=== PATIENT | male | born 1940 | race Caucasian/White ===

== ENCOUNTER 2016-12-15 11:38 | Inpatient (IN) | payer MEDICARE, OTHER ==
[~2016-12-15] VITALS: Ht 177.8 cm; Wt 69.5 kg
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
[2016-12-15 13:00] LABS: AUTOMATED NEUTROPHIL # 4.5 TH/MM3 (1.8-7.7); BASOPHIL # 0.1 TH/MM3 (0-0.2); BASOPHIL % 1.2 % (0.0-2.0); EOSINOPHIL # 0.3 TH/MM3 (0-0.4); EOSINOPHIL % 4.7 % (0.0-4.0); HEMO FLAGS DIFF FINAL; LYMPHOCYTE # 1.2 TH/MM3 (1.0-4.8); MEAN CELL VOLUME 93.2 FL (80.0-100.0); MEAN CORPUSCULAR HEMOGLOBIN 32.5 PG (27.0-34.0); MEAN CORPUSCULAR HGB CONC 34.8 % (32.0-36.0); MONO % 9.1 % (0.0-8.0); PLATELET COUNT 257 TH/MM3 (150-450); RED BLOOD COUNT 4.29 MIL/MM3 (4.50-5.90); RED CELL DISTRIBUTION WIDTH 13.7 % (11.6-17.2); WHITE BLOOD COUNT 6.7 TH/MM3 (4.0-11.0)
[2016-12-15 13:08] LABS: AMPHETAMINE, URINE NEG (NEG); BARBITURATES, URINE NEG (NEG); COCAINE, URINE NEG (NEG)
[2016-12-15 13:21] LABS: ALT (GPT) 20 U/L (12-78); ANION GAP 7 MEQ/L (5-15); AST (GOT) 14 U/L (15-37); BLOOD UREA NITROGEN 16 MG/DL (7-18); CHLORIDE 105 MEQ/L (98-107); GLOMERULAR FILTRATION RATE 78 ML/MIN (>89); POTASSIUM 4.2 MEQ/L (3.5-5.1); SODIUM (NA) 139 MEQ/L (136-145)
[2016-12-15 13:23] LABS: ALKALINE PHOSPHATASE 68 U/L (45-117); TOTAL BILIRUBIN ADULT 0.3 MG/DL (0.2-1.0)
[2016-12-15 16:35] VITALS: BP 105/73; PULSE 59; RESP 20; TEMP 97; O2SAT 94
[2016-12-15 18:52] VITALS: BP 132/68; PULSE 76; RESP 20; TEMP 97.2; O2SAT 100
[2016-12-15] MEDS ORDERED: CALC1TAB87 PO (20:19)
[2016-12-15] MEDS ORDERED: NAME5TAB2 PO (20:19)
[2016-12-15] MEDS ORDERED: BENZTROPINE MESYLATE 1 MG TAB PO PRN (20:45)
[2016-12-15] MEDS ORDERED: MAGNESIUM HYDROXIDE SUSP 30 ML CUP PO PRN (20:45)
[2016-12-15] MEDS ORDERED: BENZTROPINE MESYLATE 2 MG/2 ML VIAL IM PRN (20:45)
[2016-12-15] MEDS ORDERED: ACETAMINOPHEN 325 MG TAB PO PRN (20:45)
[2016-12-15] MEDS ORDERED: ALUMINUM/MAGNESIUM/SIMETH 30 ML CUP PO PRN (20:45)
[2016-12-15] MEDS ORDERED: diphenhydrAMINE HCL 50 MG CAP PO PRN (20:45)
[2016-12-15] MEDS ORDERED: LORazepam 2 MG/ML VIAL IM PRN (20:45)
[2016-12-15 22:21] VITALS: BP 100/54; PULSE 65; RESP 18; O2SAT 94
[2016-12-15 22:45] VITALS: BP 90/58; PULSE 71; RESP 16; TEMP 98.5; O2SAT 94
[2016-12-16 06:39] VITALS: BP 74/48; PULSE 61; RESP 16; TEMP 98.7; O2SAT 98
[2016-12-16 08:53] LABS: ANION GAP 6 MEQ/L (5-15); BLOOD UREA NITROGEN 14 MG/DL (7-18); CHLORIDE 105 MEQ/L (98-107); GLOMERULAR FILTRATION RATE 89 ML/MIN (>89); HDL CHOLESTEROL 47.2 MG/DL (40.0-60.0); LDL CHOLESTEROL 189 MG/DL (0-99); SODIUM (NA) 138 MEQ/L (136-145)
[2016-12-16] MEDS ORDERED: NICOTINE 21 MG/24 HR PATCH T-DERMAL SCH (09:00)
[2016-12-16] MEDS ORDERED: REMOVE OLD PATCH T-DERMAL SCH (09:00)
[2016-12-16 12:42] LABS: HEMOGLOBIN A1a 1.1 %; HEMOGLOBIN A1b 0.9 %; HEMOGLOBIN Ao 85.2 %; HEMOGLOBIN LA1C 1.9 %; HEMOGLOBIN P3 3.7 %
[2016-12-16] MEDS ORDERED: hydrOXYzine HCL 50 MG TAB PO PRN (12:45)
[2016-12-16] MEDS ORDERED: ALUMINUM/MAGNESIUM/SIMETH 30 ML CUP PO PRN (12:45)
[2016-12-16] MEDS ORDERED: ACETAMINOPHEN 325 MG TAB PO PRN (12:45)
[2016-12-16] MEDS ORDERED: MAGNESIUM HYDROXIDE SUSP 30 ML CUP PO PRN (12:45)
[2016-12-16] MEDS ORDERED: diphenhydrAMINE HCL 50 MG CAP PO PRN (12:45)
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
[2016-12-16 15:20] VITALS: BP 70/46
[2016-12-16 15:32] VITALS: BP 102/62; PULSE 62
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
[2016-12-16] MEDS ORDERED: MEMANTINE HCL 7 MG PO SCH (21:00)
[2016-12-17 06:01] VITALS: BP 121/73; PULSE 70; RESP 18; TEMP 98.6; O2SAT 97
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
[2016-12-17 08:51] LABS: AUTOMATED NEUTROPHIL # 4.5 TH/MM3 (1.8-7.7); BASOPHIL # 0.1 TH/MM3 (0-0.2); BASOPHIL % 0.8 % (0.0-2.0); EOSINOPHIL # 0.3 TH/MM3 (0-0.4); HEMATOCRIT 36.9 % (39.0-51.0); HEMO FLAGS DIFF FINAL; LYMPH % 19.4 % (9.0-44.0); LYMPHOCYTE # 1.3 TH/MM3 (1.0-4.8); MEAN CELL VOLUME 93.4 FL (80.0-100.0); MEAN CORPUSCULAR HEMOGLOBIN 31.4 PG (27.0-34.0); MEAN CORPUSCULAR HGB CONC 33.6 % (32.0-36.0); MONO % 9.1 % (0.0-8.0); NEUT % 66.7 % (16.0-70.0); PLATELET COUNT 216 TH/MM3 (150-450); RED BLOOD COUNT 3.95 MIL/MM3 (4.50-5.90); RED CELL DISTRIBUTION WIDTH 13.2 % (11.6-17.2); WHITE BLOOD COUNT 6.7 TH/MM3 (4.0-11.0)
[2016-12-17 09:17] LABS: ALKALINE PHOSPHATASE 59 U/L (45-117); ALT (GPT) 16 U/L (12-78); ANION GAP 10 MEQ/L (5-15); AST (GOT) 12 U/L (15-37); BICARBONATE 24.2 MEQ/L (21.0-32.0); BLOOD UREA NITROGEN 14 MG/DL (7-18); CHLORIDE 105 MEQ/L (98-107); FREE T4 1.06 NG/DL (0.76-1.46); GLOMERULAR FILTRATION RATE 88 ML/MIN (>89); SODIUM (NA) 139 MEQ/L (136-145); TOTAL BILIRUBIN ADULT 0.4 MG/DL (0.2-1.0)
[2016-12-17] MEDS: CALCIUM/VITAMIN D 250 MG/125 U TAB PO SCH (10:30)
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
--- NOTE | 2016-12-17 15:43 | HHI.PR ---
Addendum to Inpatient Note Additional Information He is medically stable. We'll sign off. Call if needed follow-up pending urinalysis Aaron Navarro MD Dec 17, 2016 15:42
[2016-12-17] MEDS: QUEtiapine FUMARATE 25 MG TAB PO SCH (17:52)
[2016-12-17 18:09] VITALS: BP 83/53; PULSE 68; RESP 18; TEMP 98.2; O2SAT 97
[2016-12-18 06:18] VITALS: BP 115/55; PULSE 69; RESP 16; TEMP 97.9; O2SAT 93
[2016-12-18] MEDS: CALCIUM/VITAMIN D 250 MG/125 U TAB PO SCH (08:59)
[2016-12-18] MEDS: QUEtiapine FUMARATE 25 MG TAB PO SCH ×3 (09:00→17:09)
[2016-12-18 18:00] VITALS: BP 88/50; PULSE 65; RESP 16; TEMP 97.5; O2SAT 94
--- NOTE | 2016-12-18 19:43 | HHI.PYPN ---
Subjective Remarks Pt seen and discussed with staff. Pt refused medications today. He believes he is 55 years old and reports the year as 2014. No agitation or aggression. Objective Alert: Yes [place]: Person Mood: Calm, Other (vigilant) Affect: Restricted Memory Intact: Comment (poor) Hallucinations: Other (denies) Delusions: Yes Delusion Type: Paranoid (vigilant) Suicidal: Ideation (denies) Homicidal: Ideation (denies) Insight/Judgement poor Vitals/IOs Vital Signs Date Time Temp Pulse Resp B/P Pulse Ox O2 Delivery O2 Flow Rate FiO2 12/18/16 18:00 97.5 65 16 88/50 94 12/15/16 22:21 Room Air Intake and Output 12/17/16 12/17/16 12/18/16 08:00 16:00 00:00 Intake Total 0 ml 1200 ml 720 ml Balance 0 ml 1200 ml 720 ml Assessment & Plan Problem List: (1) Dementia with aggressive behavior ICD Code: F03.91 Assessment & Plan continue current tx plan. Estimated LOS: days Justification for Cont. Inpt. impairments in self care Harleen Singh MD Dec 18, 2016 19:43
[2016-12-19 05:14] VITALS: BP 129/58; PULSE 63; RESP 18; TEMP 98.1; O2SAT 95
[2016-12-19] MEDS: QUEtiapine FUMARATE 25 MG TAB PO SCH ×3 (09:00→18:00)
[2016-12-19] MEDS: CALCIUM/VITAMIN D 250 MG/125 U TAB PO SCH (09:23)
--- NOTE | 2016-12-19 19:43 | HHI.PYPN ---
Subjective Remarks Pt seen and discussed with staff. He continues to be paranoid. He has refused medications again today. No SI/HI. Objective Alert: Yes [place]: Person Mood: Calm, Other (vigilant) Affect: Restricted Memory Intact: Comment (poor) Hallucinations: Other (denies) Delusions: Yes Delusion Type: Paranoid (vigilant) Suicidal: Ideation (denies) Homicidal: Ideation (denies) Insight/Judgement poor Vitals/IOs Vital Signs Date Time Temp Pulse Resp B/P Pulse Ox O2 Delivery O2 Flow Rate FiO2 12/19/16 05:14 98.1 63 18 129/58 95 12/15/16 22:21 Room Air Intake and Output 12/18/16 12/18/16 12/19/16 08:00 16:00 00:00 Intake Total 240 ml 1200 ml 1200 ml Balance 240 ml 1200 ml 1200 ml Assessment & Plan Problem List: (1) Dementia with aggressive behavior ICD Code: F03.91 Assessment & Plan Continue current tx plan. Estimated LOS: days Justification for Cont. Inpt. impairments in reality construction and self care Harleen Singh MD Dec 19, 2016 19:43
[2016-12-20 05:45] VITALS: BP 96/55; PULSE 59; RESP 16; TEMP 98.1; O2SAT 94
[2016-12-20] MEDS: QUEtiapine FUMARATE 25 MG TAB PO SCH ×3 (08:13→16:45)
[2016-12-20] MEDS: CALCIUM/VITAMIN D 250 MG/125 U TAB PO SCH (10:46)
--- NOTE | 2016-12-20 14:57 | HHI.PYPN ---
Subjective Remarks Patient discussed with treatment team and medical student Samantha, chart reviewed, patient seen on unit after session. Patient remains irritable paranoid psychotic and isolating continue to focus on wanting to go live with his girlfriend though we have no information of verification that she even exists. Patient also showing resistance to taking medication. We'll consider reassessing his competency to agreed to medication if he does not improve overnight tonight Review of Systems Except as stated in HPI: all other systems reviewed are Neg Objective Alert: Yes [place]: Person Mood: Calm, Other (vigilant) Affect: Restricted Memory Intact: Comment (poor) Hallucinations: Other (denies) Delusions: Yes Delusion Type: Paranoid (vigilant) Suicidal: Ideation (denies) Homicidal: Ideation (denies) Insight/Judgement Poor Vitals/IOs Vital Signs Date Time Temp Pulse Resp B/P Pulse Ox O2 Delivery O2 Flow Rate FiO2 12/20/16 05:45 98.1 59 16 96/55 94 Intake and Output 12/19/16 12/19/16 12/20/16 08:00 16:00 00:00 Intake Total 0 ml 960 ml Balance 0 ml 960 ml Assessment & Plan Problem List: (1) Dementia with aggressive behavior ICD Code: F03.91 Assessment & Plan Estimated LOS: days patient continues confused irritable angry with poor compliance medication for now continue treatment reassess for competency tomorrow Justification for Cont. Inpt. At this time patient will decompensate of placed in the lower level of care Discharge Planning To be determined Akshat Diaz MD Dec 20, 2016 14:57
[2016-12-20 18:00] VITALS: BP 81/51; PULSE 68; RESP 17; TEMP 98; O2SAT 96
[2016-12-21 06:17] VITALS: BP 118/66; PULSE 62; RESP 16; TEMP 98; O2SAT 96
[2016-12-21] MEDS: CALCIUM/VITAMIN D 250 MG/125 U TAB PO SCH (09:00)
[2016-12-21] MEDS: QUEtiapine FUMARATE 25 MG TAB PO SCH ×3 (09:00→18:00)
--- NOTE | 2016-12-21 10:45 | HHI.PYPN ---
Subjective Remarks Patient seen in day room with nurse Evelin and medical student Samantha, patient calm cooperative me though somewhat diffusely confused, vigilant, and guarded, still voices desire to move in with his girlfriend. Though no girlfriend has yet been located.. At this point I feel patient does not have capacity to make to see is concerning his care I will ask for healthcare surrogate and guardian advocate Review of Systems Except as stated in HPI: all other systems reviewed are Neg Objective Alert: Yes [place]: Person Mood: Calm, Other (vigilant) Affect: Restricted Memory Intact: Comment (poor) Hallucinations: Other (denies) Delusions: Yes Delusion Type: Paranoid (vigilant) Suicidal: Ideation (denies) Homicidal: Ideation (denies) Insight/Judgement Poor Vitals/IOs Vital Signs Date Time Temp Pulse Resp B/P Pulse Ox O2 Delivery O2 Flow Rate FiO2 12/21/16 06:17 98.0 62 16 118/66 96 Intake and Output 12/20/16 12/20/16 12/20/16 07:59 15:59 23:59 Intake Total 0 ml 1080 ml 1080 ml Balance 0 ml 1080 ml 1080 ml Assessment & Plan Problem List: (1) Dementia with aggressive behavior ICD Code: F03.91 Assessment & Plan Estimated LOS: days patient remains somewhat confused with underlying vigilance , quite guarded. At this point I feel patient does not have capacity to make decisions concerning his care thus I'll ask for healthcare surrogate and guardian advocate Justification for Cont. Inpt. At this point patient would decompensate placed in a lower level of care Discharge Planning To be determined Request HC Surrog/Guard Advoc?: Yes Akshat Diaz MD Dec 21, 2016 10:45
[2016-12-21 18:21] VITALS: BP 120/70; PULSE 58; RESP 16; TEMP 98.2; O2SAT 98
[2016-12-22 06:34] VITALS: BP 85/56; PULSE 55; RESP 16; TEMP 97.9; O2SAT 98
[2016-12-22] MEDS: QUEtiapine FUMARATE 25 MG TAB PO SCH ×2 (09:21→20:31)
[2016-12-22] MEDS: CALCIUM/VITAMIN D 250 MG/125 U TAB PO SCH (09:21)
--- NOTE | 2016-12-22 11:35 | HHI.PYPN ---
Subjective Remarks Patient seen in his room with nurse Monalisa, he should compliant medications he is calm with me though continues to state that he wishes to go to live in the now with his girlfriend, however we have never been able to identify or verify the girlfriend. Patient showing no insight into his behaviors. At this time we will increase Seroquel to 50 mg twice a day Review of Systems Except as stated in HPI: all other systems reviewed are Neg Objective Alert: Yes [place]: Person Mood: Calm, Other (vigilant) Affect: Restricted Memory Intact: Comment (poor) Hallucinations: Other (denies) Delusions: Yes Delusion Type: Paranoid (vigilant) Suicidal: Ideation (denies) Homicidal: Ideation (denies) Insight/Judgement Very poor Vitals/IOs Vital Signs Date Time Temp Pulse Resp B/P Pulse Ox O2 Delivery O2 Flow Rate FiO2 12/22/16 06:34 97.9 55 16 85/56 98 Intake and Output 12/21/16 12/21/16 12/22/16 08:00 16:00 00:00 Intake Total 120 ml 360 ml 480 ml Balance 120 ml 360 ml 480 ml Assessment & Plan Problem List: (1) Dementia with aggressive behavior ICD Code: F03.91 Assessment & Plan Estimated LOS: days patient continues confused demented, though no significant help problems at this time. Patient continues to state he wishes to move to been well with his girlfriend See medication changes above Justification for Cont. Inpt. At this time patient will decompensate if placed in a lower level of care Discharge Planning To be determined Request HC Surrog/Guard Advoc?: Yes Akshat Diaz MD Dec 22, 2016 11:35
[2016-12-22 18:00] VITALS: BP 83/56; PULSE 58; RESP 16; TEMP 98.2; O2SAT 96
[2016-12-23 05:52] VITALS: BP 79/52; PULSE 69; RESP 16; TEMP 97.9; O2SAT 99
[2016-12-23] MEDS: CALCIUM/VITAMIN D 250 MG/125 U TAB PO SCH (09:12)
[2016-12-23] MEDS: QUEtiapine FUMARATE 25 MG TAB PO SCH ×2 (09:13→21:00)
--- NOTE | 2016-12-23 14:51 | HHI.PYPN ---
Subjective Remarks Patient seen in [address] patient retained by Community Service Aide Tristin with guarded advocate appointed. Patient remains confused somewhat disoriented. Compliant medication. Though still no insight at all into behaviors that led to this hospitalization Review of Systems Except as stated in HPI: all other systems reviewed are Neg Objective Alert: Yes [place]: Person Mood: Calm, Other (vigilant) Affect: Restricted Memory Intact: Comment (poor) Hallucinations: Other (denies) Delusions: Yes Delusion Type: Paranoid (vigilant) Suicidal: Ideation (denies) Homicidal: Ideation (denies) Insight/Judgement Very poor Vitals/IOs Vital Signs Date Time Temp Pulse Resp B/P Pulse Ox O2 Delivery O2 Flow Rate FiO2 12/23/16 05:52 97.9 69 16 79/52 99 Intake and Output 12/22/16 12/22/16 12/23/16 08:00 16:00 00:00 Intake Total 120 ml 1200 ml 840 ml Balance 120 ml 1200 ml 840 ml Assessment & Plan Problem List: (1) OTHER ALZHEIMER'S DISEASE ICD Code: G30.8 Assessment & Plan Estimated LOS: days patient retained by Community Service Aide Tristin continues confused and disoriented. For now continue treatment. Placement may be problematic Justification for Cont. Inpt. At this time patient decompensated placed in a lower level of care Discharge Planning To be determined Request HC Surrog/Guard Advoc?: Yes Akshat Diaz MD Dec 23, 2016 14:51
[2016-12-23 18:45] VITALS: BP 132/61; PULSE 59; RESP 17; TEMP 97.7; O2SAT 97
[2016-12-24 06:03] VITALS: BP 85/46; PULSE 67; RESP 16; TEMP 97.8; O2SAT 94
[2016-12-24 09:00] VITALS: BP 99/60; PULSE 62
[2016-12-24] MEDS: CALCIUM/VITAMIN D 250 MG/125 U TAB PO SCH (09:00)
[2016-12-24] MEDS: QUEtiapine FUMARATE 25 MG TAB PO SCH ×2 (09:00→20:15)
[2016-12-24 17:51] VITALS: BP 141/65; PULSE 61
[2016-12-24 18:04] VITALS: BP 141/65; PULSE 61; RESP 16; TEMP 97.9; O2SAT 97
[2016-12-25 06:42] VITALS: BP 117/57; PULSE 63; RESP 17; TEMP 98; O2SAT 97
[2016-12-25] MEDS: QUEtiapine FUMARATE 25 MG TAB PO SCH ×2 (09:00→21:33)
[2016-12-25] MEDS: CALCIUM/VITAMIN D 250 MG/125 U TAB PO SCH (09:00)
--- NOTE | 2016-12-25 11:52 | HHI.PYPN ---
Subjective Remarks Patient was seen and case discussed with nursing. Patient was irritable with nursing this morning and refuse to take his calcium pill. He has been noncompliant with Seroquel since admission. With me he remains oppositional not rude. Continues to have fixed delusion that is 55 years old. Largely keeps to himself. no aggressive behavior Objective Alert: Yes [place]: Person Mood: Calm, Other (vigilant) Affect: Restricted Memory Intact: Comment (poor) Hallucinations: Other (denies) Delusions: Yes Delusion Type: Paranoid (vigilant) Suicidal: Ideation (denies) Homicidal: Ideation (denies) Insight/Judgement Poor Vitals/IOs Vital Signs Date Time Temp Pulse Resp B/P Pulse Ox O2 Delivery O2 Flow Rate FiO2 12/25/16 06:42 98.0 63 17 117/57 97 Intake and Output 12/24/16 12/24/16 12/25/16 08:00 16:00 00:00 Intake Total 360 ml 1200 ml 720 ml Balance 360 ml 1200 ml 720 ml Assessment & Plan Problem List: (1) OTHER ALZHEIMER'S DISEASE ICD Code: G30.8 Assessment & Plan Continue current treatment plan Justification for Cont. Inpt. Patient will decompensate in a less restrictive setting Request HC Surrog/Guard Advoc?: Yes Pablo Ferreira DO Dec 25, 2016 11:51
[2016-12-26 06:43] VITALS: BP 74/52; PULSE 77; RESP 18; TEMP 97.7; O2SAT 95
[2016-12-26] MEDS: QUEtiapine FUMARATE 25 MG TAB PO SCH ×2 (09:00→20:46)
[2016-12-26] MEDS: CALCIUM/VITAMIN D 250 MG/125 U TAB PO SCH (09:00)
--- NOTE | 2016-12-26 13:19 | HHI.PYPN ---
Subjective Remarks Patient was seen and case discussed with nursing. Patient continues to refuse all medications. She needs to have fixed delusion that he 75. He is seclusive to self. Continues to have poor insight into his admission. Per nursing he has an irritable edge. Vitals were checked this morning and were 74/52 which is low what he appears to have had low pressure since his admission. Denies any dizziness, pain. Objective Alert: Yes [place]: Person Mood: Calm, Other (vigilant) Affect: Restricted Memory Intact: Comment (poor) Hallucinations: Other (denies) Delusions: Yes Delusion Type: Paranoid (vigilant) Suicidal: Ideation (denies) Homicidal: Ideation (denies) Insight/Judgement Poor Vitals/IOs Vital Signs Date Time Temp Pulse Resp B/P Pulse Ox O2 Delivery O2 Flow Rate FiO2 12/26/16 06:43 97.7 77 18 74/52 95 Intake and Output 12/25/16 12/25/16 12/26/16 08:00 16:00 00:00 Intake Total 240 ml 480 ml 360 ml Balance 240 ml 480 ml 360 ml Assessment & Plan Problem List: (1) OTHER ALZHEIMER'S DISEASE ICD Code: G30.8 Assessment & Plan Encourage fluids, consult medicine Justification for Cont. Inpt. Patient will decompensate in a less restrictive setting Request HC Surrog/Guard Advoc?: Yes Pablo Ferreira DO Dec 26, 2016 13:19
[2016-12-26 14:09] VITALS: BP 98/62; PULSE 78
[2016-12-26 18:17] VITALS: BP 100/50; PULSE 78; RESP 19; TEMP 98.1; O2SAT 96
[2016-12-27 06:04] VITALS: BP 86/42; PULSE 80; RESP 16; TEMP 98.1; O2SAT 94
[2016-12-27 06:12] VITALS: BP 86/42; PULSE 80; RESP 16; TEMP 98.1; O2SAT 94
[2016-12-27] MEDS: CALCIUM/VITAMIN D 250 MG/125 U TAB PO SCH (09:00)
[2016-12-27] MEDS: QUEtiapine FUMARATE 25 MG TAB PO SCH ×2 (09:00→21:29)
[2016-12-27 09:54] VITALS: BP 130/59
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
--- NOTE | 2016-12-27 16:07 | HHI.PYPN ---
Subjective Remarks Patient discussed with treatment team and medical student Tiffany, chart reviewed , patient seen on unit but confused irritable with mixed compliance with medication. Placement remains problematic Review of Systems Except as stated in HPI: all other systems reviewed are Neg Objective Alert: Yes [place]: Person Mood: Calm, Other (vigilant) Affect: Restricted Memory Intact: Comment (poor) Hallucinations: Other (denies) Delusions: Yes Delusion Type: Paranoid (vigilant) Suicidal: Ideation (denies) Homicidal: Ideation (denies) Insight/Judgement Poor Vitals/IOs Vital Signs Date Time Temp Pulse Resp B/P Pulse Ox O2 Delivery O2 Flow Rate FiO2 12/27/16 09:54 130/59 12/27/16 06:12 98.1 80 16 94 Intake and Output 12/26/16 12/26/16 12/27/16 08:00 16:00 00:00 Intake Total 0 ml 2160 ml Balance 0 ml 2160 ml Assessment & Plan Problem List: (1) OTHER ALZHEIMER'S DISEASE ICD Code: G30.8 Assessment & Plan Estimated LOS: days patient remains confused demented irritable with some poor compliance medication. Placement remains problematic Justification for Cont. Inpt. At this time patient decompensate placed on the lower level of care Discharge Planning To be determined Request HC Surrog/Guard Advoc?: Yes Akshat Diaz MD Dec 27, 2016 16:07
[2016-12-28 06:39] VITALS: BP 85/50; PULSE 89; RESP 16; TEMP 99.5; O2SAT 94
[2016-12-28 07:20] VITALS: BP 134/65; PULSE 72
[2016-12-28] MEDS: CALCIUM/VITAMIN D 250 MG/125 U TAB PO SCH (09:49)
[2016-12-28] MEDS: QUEtiapine FUMARATE 25 MG TAB PO SCH ×2 (09:49→21:48)
--- NOTE | 2016-12-28 14:14 | HHI.PYPN ---
Subjective Remarks Patient seen in his room with nurse Kaley and medical student Tiffany, patient calm cooperative, compliant medications still has a little to no insight into his behaviors and lift this hospitalization relating to the problems related to placement Review of Systems Except as stated in HPI: all other systems reviewed are Neg Objective Alert: Yes [place]: Person Mood: Calm, Other (vigilant) Affect: Restricted Memory Intact: Comment (poor) Hallucinations: Other (denies) Delusions: Yes Delusion Type: Paranoid (vigilant) Suicidal: Ideation (denies) Homicidal: Ideation (denies) Insight/Judgement Poor Vitals/IOs Vital Signs Date Time Temp Pulse Resp B/P Pulse Ox O2 Delivery O2 Flow Rate FiO2 12/28/16 07:20 72 134/65 12/28/16 06:39 99.5 16 94 Intake and Output 12/27/16 12/27/16 12/28/16 08:00 16:00 00:00 Intake Total 360 ml Balance 360 ml Assessment & Plan Problem List: (1) OTHER ALZHEIMER'S DISEASE ICD Code: G30.8 Assessment & Plan Estimated LOS: days patient continues confused irritable little insight into his issues. Compliant medications. No behavior problems noted at this time Justification for Cont. Inpt. This time patient would decompensate placed a lower level of care Discharge Planning To be determined Request HC Surrog/Guard Advoc?: Yes Akshat Diaz MD Dec 28, 2016 14:14
[2016-12-29 06:34] VITALS: BP 89/56; PULSE 93; RESP 16; TEMP 100; O2SAT 94
[2016-12-29] MEDS: QUEtiapine FUMARATE 25 MG TAB PO SCH ×2 (08:42→21:59)
[2016-12-29] MEDS: CALCIUM/VITAMIN D 250 MG/125 U TAB PO SCH (08:43)
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
--- NOTE | 2016-12-29 12:54 | HHI.PYPN ---
Subjective Remarks Patient seen in day room with nurse Lora, patient continues calm and cooperative and confused stating that tomorrow is his 56th birthday, and he wants to be discharged. He should compliant medications. No significant behavioral problems Review of Systems Except as stated in HPI: all other systems reviewed are Neg Objective Alert: Yes [place]: Person Mood: Calm, Other (vigilant) Affect: Restricted Memory Intact: Comment (poor) Hallucinations: Other (denies) Delusions: Yes Delusion Type: Paranoid (vigilant) Suicidal: Ideation (denies) Homicidal: Ideation (denies) Insight/Judgement Very poor Vitals/IOs Vital Signs Date Time Temp Pulse Resp B/P Pulse Ox O2 Delivery O2 Flow Rate FiO2 12/29/16 06:34 100.0 93 16 89/56 94 Intake and Output 12/28/16 12/28/16 12/28/16 07:59 15:59 23:59 Intake Total 1440 ml Balance 1440 ml Assessment & Plan Problem List: (1) OTHER ALZHEIMER'S DISEASE ICD Code: G30.8 Assessment & Plan Estimated LOS: days patient continues confused disoriented, though no behavior problems, compliant medications. Staff was noted patient has some type of a open wound on his back with a red perimeter will get wound nurse consult Justification for Cont. Inpt. At this time patient will decompensate placed in a lower level of care Discharge Planning To be determined Request HC Surrog/Guard Advoc?: Yes Akshat Diaz MD Dec 29, 2016 12:53
[2016-12-29 12:59] VITALS: BP 80/55
[2016-12-29 14:26] LABS: HEMATOCRIT 35.5 % (39.0-51.0); MEAN CELL VOLUME 92.3 FL (80.0-100.0); MEAN CORPUSCULAR HGB CONC 34.6 % (32.0-36.0); PLATELET COUNT 213 TH/MM3 (150-450); RED BLOOD COUNT 3.84 MIL/MM3 (4.50-5.90); RED CELL DISTRIBUTION WIDTH 13.3 % (11.6-17.2); REVIEW FLAG FINAL; WHITE BLOOD COUNT 10.9 TH/MM3 (4.0-11.0)
[2016-12-29 14:48] LABS: BICARBONATE 26.7 MEQ/L (21.0-32.0); POTASSIUM 3.9 MEQ/L (3.5-5.1)
--- NOTE | 2016-12-29 16:38 | MB ---
cc: BARRIE WAGGONER M.D. DATE OF CONSULTATION 12/29/2016 REASON FOR CONSULTATION Right back abscess. HISTORY OF PRESENT ILLNESS Mr. Bazan is a pleasant 75-year-old gentleman who is admitted to psychiatric facility for some dementia and anger management issues. Apparently he was admitted on the . Today on rounds it was noted that he had what appeared to be an infected wound on his right inferior scapula region. Surgical consultation was requested. The patient reports he has no knowledge of any trauma to the area. He states the wound has been there for about a week. He reports it is painful. It apparently started draining in the last [id number] days when the nurse started putting a dressing on it. The patient denies any previous sebaceous cyst or any other problems with infected wounds. He denies any history of trauma to the area. PAST MEDICAL HISTORY Psychiatric illness. PAST SURGICAL HISTORY None. MEDICATIONS Please see EMR. ALLERGIES He has no known drug allergies. SOCIAL HISTORY Lives in an [facility]. He apparently smokes, does not drink. FAMILY HISTORY Noncontributory. PHYSICAL EXAMINATION VITAL SIGNS: Temperature is 98, is 90/50, respiratory rate 20. GENERAL: This is a pleasant elderly gentleman, examined with the nurse present. Focused physical exam, on his back he has about 3 cm in diameter infected sebaceous cyst just below the scapula on the right. There are some draining sites. There is associated erythema and ecchymosis. IMPRESSION Infected sebaceous cyst, right back. PLAN At this point the patient needs a very simple I&D. Unfortunately this cannot be performed in the psychiatric facility as there are insufficient supplies including local anesthetic, I&D tray and packing supplies. I discussed this with the nursing staff. The easiest thing would be to have the patient brought over to the emergency room where an ER physician or a tertiary provider such as a nurse practitioner or a physician's congressional assistant could do a simple I&D. He just needs a little bit of local anesthetic and to resect the necrotic skin right over the wound. It is going to be cleansed with peroxide and a Q-Tip and then packed with iodoform gauze and a dry dressing. I do not believe this warrants admission to the hospital and formal surgical drainage in the operating room. I believe this could be done in the fast track of the emergency department in several minutes and then he could return back to psychiatric facility. The nursing staff is going to try and coordinate this with the emergency department physician. If they are unable to coordinate it, then the patient will need to be transferred over the medical service at the main hospital and then formal surgical consultation can be made and the patient be taken the operating room for formal I&D which I think is a little bit overkill for this wound. Hopefully the nursing staff and the emergency department staff can coordinate the care which would be in the patient's best interest. MD ISAI Whitfield/KK /3:48 PM /4:25 PM
[2016-12-29] MEDS ORDERED: Vancomycin Consult Pharmacy 1 EA OTHER SCH (17:00)
[2016-12-29] MEDS ORDERED: VANCOMYCIN INJ 1,000 MG in SODIUM CHLOR 0.9% 250 ML INJ 250 ML IV SCH (17:00)
[2016-12-29] MEDS ORDERED: VANCOMYCIN 1,000 MG/NS 250 ML IV ONE ×2 (17:30)
[2016-12-29 19:12] LABS: AUTOMATED NEUTROPHIL # 9.2 TH/MM3 (1.8-7.7); BASOPHIL % 0.3 % (0.0-2.0); EOSINOPHIL # 0.1 TH/MM3 (0-0.4); EOSINOPHIL % 1.1 % (0.0-4.0); HEMATOCRIT 35.6 % (39.0-51.0); HEMO FLAGS DIFF FINAL; LYMPH % 6.4 % (9.0-44.0); LYMPHOCYTE # 0.7 TH/MM3 (1.0-4.8); MEAN CELL VOLUME 93.7 FL (80.0-100.0); MEAN CORPUSCULAR HEMOGLOBIN 31.5 PG (27.0-34.0); MEAN CORPUSCULAR HGB CONC 33.6 % (32.0-36.0); MONO % 11.3 % (0.0-8.0); NEUT % 80.9 % (16.0-70.0); PLATELET COUNT 216 TH/MM3 (150-450); RED CELL DISTRIBUTION WIDTH 13.3 % (11.6-17.2); WHITE BLOOD COUNT 11.4 TH/MM3 (4.0-11.0)
[2016-12-29] MEDS ORDERED: VANCOMYCIN INJ 1,750 MG in SODIUM CHLORID 0.9% 500 ML INJ 500 ML IV SCH (20:00)
[2016-12-29 20:49] VITALS: BP 135/57; PULSE 80; RESP 16; TEMP 97.4; O2SAT 98
[2016-12-29] MEDS: SODIUM CHLOR 0.9% 1000 ML INJ 1,000 ML IV SCH (23:27)
[2016-12-30] MEDS: PIPERACIL-TAZO 3.375 GM PREMIX 50 ML IV SCH ×5 (00:23→21:42)
[2016-12-30] MEDS: SODIUM CHLOR 0.9% 1000 ML INJ 1,000 ML IV SCH ×3 (03:00→21:46)
[2016-12-30] MEDS: LORazepam 0.5 MG TAB PO PRN (03:37)
[2016-12-30 05:50] VITALS: BP 110/57; PULSE 74; RESP 16; TEMP 98.1; O2SAT 94
[2016-12-30 07:18] LABS: BICARBONATE 26.9 MEQ/L (21.0-32.0); POTASSIUM 3.7 MEQ/L (3.5-5.1)
[2016-12-30 07:31] LABS: AUTOMATED NEUTROPHIL # 7.4 TH/MM3 (1.8-7.7); BASOPHIL # 0.1 TH/MM3 (0-0.2); BASOPHIL % 0.5 % (0.0-2.0); EOSINOPHIL # 0.2 TH/MM3 (0-0.4); EOSINOPHIL % 2.1 % (0.0-4.0); HEMATOCRIT 33.1 % (39.0-51.0); HEMO FLAGS DIFF FINAL; LYMPH % 10.5 % (9.0-44.0); LYMPHOCYTE # 1.1 TH/MM3 (1.0-4.8); MEAN CELL VOLUME 92.7 FL (80.0-100.0); MEAN CORPUSCULAR HEMOGLOBIN 31.2 PG (27.0-34.0); MEAN CORPUSCULAR HGB CONC 33.7 % (32.0-36.0); MONO % 13.4 % (0.0-8.0); NEUT % 73.5 % (16.0-70.0); PLATELET COUNT 209 TH/MM3 (150-450); RED BLOOD COUNT 3.57 MIL/MM3 (4.50-5.90); RED CELL DISTRIBUTION WIDTH 13.4 % (11.6-17.2); WHITE BLOOD COUNT 10.1 TH/MM3 (4.0-11.0)
[2016-12-30] MEDS: QUEtiapine FUMARATE 25 MG TAB PO SCH ×2 (08:50→21:41)
[2016-12-30] MEDS: CALCIUM/VITAMIN D 250 MG/125 U TAB PO SCH (08:50)
[2016-12-30] MEDS ORDERED: LIDOCAINE HCL 1% 30 ML VIAL OTHER SCH (10:00)
--- NOTE | 2016-12-30 12:28 | HHI.PYPN ---
Subjective Remarks On evaluation today patient is calm, cooperative, pleasantly confused, he knows that he is at [facility], he knows today is December 2016, but he doesn't know the reason he is in the hospital, doesn't recognize his medical illnesses and the know the medication that he is taking. However he reports good mood, he says that he feels good here, denies suicidal or homicidal ideation, denies visual and auditory hallucinations. Patient was transferred to the med psych unit from 2500 units due to back abscess for which IV is recommending IV antibiotics. Review of Systems Other He doesn't have any somatic complaint Objective Alert: Yes [place]: Person Mood: Calm, Other (vigilant) Affect: Restricted Memory Intact: Comment (poor) Hallucinations: Other (denies) Delusions: Yes Delusion Type: Paranoid (vigilant) Suicidal: Ideation (denies) Homicidal: Ideation (denies) Insight/Judgement fair Labs Test 12/29/16 12/30/16 12/30/16 14:03 01:09 06:20 White Blood Count 11.4 TH/MM3 10.1 TH/MM3 Red Blood Count 3.80 MIL/MM3 3.57 MIL/MM3 Hemoglobin 12.0 GM/DL 11.1 GM/DL Hematocrit 35.6 % 33.1 % Mean Corpuscular Volume 93.7 FL 92.7 FL Mean Corpuscular Hemoglobin 31.5 PG 31.2 PG Mean Corpuscular Hemoglobin 33.6 % 33.7 % Concent Red Cell Distribution Width 13.3 % 13.4 % Platelet Count 216 TH/MM3 209 TH/MM3 Mean Platelet Volume 8.9 FL 8.4 FL Neutrophils (%) (Auto) 80.9 % 73.5 % Lymphocytes (%) (Auto) 6.4 % 10.5 % Monocytes (%) (Auto) 11.3 % 13.4 % Eosinophils (%) (Auto) 1.1 % 2.1 % Basophils (%) (Auto) 0.3 % 0.5 % Neutrophils # (Auto) 9.2 TH/MM3 7.4 TH/MM3 Lymphocytes # (Auto) 0.7 TH/MM3 1.1 TH/MM3 Monocytes # (Auto) 1.3 TH/MM3 1.3 TH/MM3 Eosinophils # (Auto) 0.1 TH/MM3 0.2 TH/MM3 Basophils # (Auto) 0.0 TH/MM3 0.1 TH/MM3 CBC Comment DIFF FINAL DIFF FINAL Differential Comment Sodium Level 135 MEQ/L 136 MEQ/L Potassium Level 3.9 MEQ/L 3.7 MEQ/L Chloride Level 101 MEQ/L 103 MEQ/L Carbon Dioxide Level 26.7 MEQ/L 26.9 MEQ/L Anion Gap 7 MEQ/L 6 MEQ/L Blood Urea Nitrogen 14 MG/DL 12 MG/DL Creatinine 0.87 MG/DL 0.85 MG/DL Estimat Glomerular Filtration 85 ML/MIN 87 ML/MIN Rate Random Glucose 117 MG/DL 95 MG/DL Calcium Level 8.6 MG/DL 8.1 MG/DL Lactic Acid Level 0.6 mmol/L Date/Time Procedure Status Source Growth 12/30/16 01:09 Aerobic Blood Culture Received Blood Peripheral Pending 12/30/16 01:09 Anaerobic Blood Culture Received Blood Peripheral Pending Vitals/IOs Vital Signs Date Time Temp Pulse Resp B/P Pulse Ox O2 Delivery O2 Flow Rate FiO2 12/30/16 05:50 98.1 74 16 110/57 94 Intake and Output 12/29/16 12/29/16 12/30/16 08:00 16:00 00:00 Intake Total 600 ml Balance 600 ml Assessment & Plan Problem List: (1) OTHER ALZHEIMER'S DISEASE ICD Code: G30.8 Assessment & Plan Estimated LOS: days Justification for Cont. Inpt. Patient is to continue psychiatric hospitalization for stabilization, needs IV antibiotic therapy for back abscess Request HC Surrog/Guard Advoc?: Yes Job Bowling MD Dec 30, 2016 12:26
[2016-12-30] MEDS ORDERED: LIDOCAINE 1%/EPINEPHrine 1:100,000 SOLN 30 ML VIAL OTHER ONE (13:45)
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
[2016-12-30 19:42] VITALS: BP 136/58; PULSE 102; RESP 16; TEMP 98.7; O2SAT 95
[2016-12-30] MEDS: VANCOMYCIN 1,000 MG/NS 250 ML IV SCH ×2 (20:43)
[2016-12-31 00:49] LABS: BLOOD, URINE NEG (NEG); COMMENT (UR) CULT NOT INDICATED; CULTURE IF INDICATED CULT NOT INDICATED; GLUCOSE,URINE NEG (NEG); KETONE, URINE NEG (NEG); MUCUS URINE FEW /lpf (OCC); NITRITE,URINE NEG (NEG); PH, URINE 5.5 (5.0-8.5); URINE COLOR YELLOW (YELLW/STRAW)
[2016-12-31] MEDS: PIPERACIL-TAZO 3.375 GM PREMIX 50 ML IV SCH ×3 (03:00→14:50)
[2016-12-31 05:44] VITALS: BP 101/57; PULSE 61; RESP 16; TEMP 97.4; O2SAT 93
[2016-12-31 07:52] LABS: AUTOMATED NEUTROPHIL # 5.3 TH/MM3 (1.8-7.7); BASOPHIL # 0.1 TH/MM3 (0-0.2); BASOPHIL % 0.7 % (0.0-2.0); EOSINOPHIL # 0.2 TH/MM3 (0-0.4); EOSINOPHIL % 2.6 % (0.0-4.0); HEMATOCRIT 32.9 % (39.0-51.0); HEMO FLAGS DIFF FINAL; LYMPH % 13.4 % (9.0-44.0); MEAN CELL VOLUME 93.4 FL (80.0-100.0); MEAN CORPUSCULAR HEMOGLOBIN 31.1 PG (27.0-34.0); MEAN CORPUSCULAR HGB CONC 33.3 % (32.0-36.0); MONO % 14.2 % (0.0-8.0); NEUT % 69.1 % (16.0-70.0); PLATELET COUNT 225 TH/MM3 (150-450); RED BLOOD COUNT 3.53 MIL/MM3 (4.50-5.90); RED CELL DISTRIBUTION WIDTH 13.3 % (11.6-17.2); WHITE BLOOD COUNT 7.7 TH/MM3 (4.0-11.0)
[2016-12-31 08:16] LABS: ALKALINE PHOSPHATASE 54 U/L (45-117); ALT (GPT) 14 U/L (12-78); ANION GAP 5 MEQ/L (5-15); AST (GOT) 9 U/L (15-37); BICARBONATE 27.9 MEQ/L (21.0-32.0); BLOOD UREA NITROGEN 10 MG/DL (7-18); CHLORIDE 106 MEQ/L (98-107); GLOMERULAR FILTRATION RATE 71 ML/MIN (>89); MAGNESIUM 2.2 MG/DL (1.5-2.5); POTASSIUM 4.2 MEQ/L (3.5-5.1); SODIUM (NA) 139 MEQ/L (136-145); TOTAL BILIRUBIN ADULT 0.5 MG/DL (0.2-1.0)
[2016-12-31] MEDS: PRAVASTATIN SOD 20 MG TAB PO SCH (08:48)
--- NOTE | 2016-12-31 08:48 | HHI.PYPN ---
Subjective Remarks Patient was seen today for psychiatric reevaluation, patient was found calm and cooperative, pleasant, laying his bed, he reports good mood, denies pain, distress, reports good level of energy, good concentration, good appetite, he says that he has been watching the TV closely because he wants to follow the steps of Donaldo Cueva "who is going to be very close to [place] this weekend". He denies suicidal or homicidal ideation, he denies visual and auditory hallucinations. Patient is oriented in time, person and place. He is compliant with medications, no significant side effects, no agitation aggressive behavior, mood or behavioral dysregulation have been reported or observed. Review of Systems Other No somatic complaints Objective Alert: Yes [place]: Person, Place, Date Mood: Calm, Other (vigilant) Affect: Restricted Memory Intact: Recent, Remote, Comment (poor) Hallucinations: Other (denies) Delusions: Yes Delusion Type: Other (none elicited) Suicidal: Ideation (denies) Homicidal: Ideation (denies) Insight/Judgement fair Labs Test 12/31/16 12/31/16 00:12 07:17 Urine Color YELLOW Urine Turbidity CLEAR Urine pH 5.5 Urine Specific [place] 1.024 Urine Protein TRACE mg/dL Urine Glucose (UA) NEG mg/dL Urine Ketones NEG mg/dL Urine Occult Blood NEG Urine Nitrite NEG Urine Bilirubin NEG Urine Urobilinogen LESS THAN 2.0 MG/DL Urine Leukocyte Esterase NEG Urine RBC 1 /hpf Urine WBC 2 /hpf Urine Mucus FEW /lpf Microscopic Urinalysis Comment CULT NOT INDICATED White Blood Count 7.7 TH/MM3 Red Blood Count 3.53 MIL/MM3 Hemoglobin 11.0 GM/DL Hematocrit 32.9 % Mean Corpuscular Volume 93.4 FL Mean Corpuscular Hemoglobin 31.1 PG Mean Corpuscular Hemoglobin 33.3 % Concent Red Cell Distribution Width 13.3 % Platelet Count 225 TH/MM3 Mean Platelet Volume 8.2 FL Neutrophils (%) (Auto) 69.1 % Lymphocytes (%) (Auto) 13.4 % Monocytes (%) (Auto) 14.2 % Eosinophils (%) (Auto) 2.6 % Basophils (%) (Auto) 0.7 % Neutrophils # (Auto) 5.3 TH/MM3 Lymphocytes # (Auto) 1.0 TH/MM3 Monocytes # (Auto) 1.1 TH/MM3 Eosinophils # (Auto) 0.2 TH/MM3 Basophils # (Auto) 0.1 TH/MM3 CBC Comment DIFF FINAL Differential Comment Sodium Level 139 MEQ/L Potassium Level 4.2 MEQ/L Chloride Level 106 MEQ/L Carbon Dioxide Level 27.9 MEQ/L Anion Gap 5 MEQ/L Blood Urea Nitrogen 10 MG/DL Creatinine 1.02 MG/DL Estimat Glomerular Filtration 71 ML/MIN Rate Random Glucose 87 MG/DL Calcium Level 8.5 MG/DL Phosphorus Level 2.8 MG/DL Magnesium Level 2.2 MG/DL Total Bilirubin 0.5 MG/DL Aspartate Amino Transf 9 U/L (AST/SGOT) Alanine Aminotransferase 14 U/L (ALT/SGPT) Alkaline Phosphatase 54 U/L Total Protein 5.7 GM/DL Albumin 2.5 GM/DL Date/Time Procedure Status Source Growth 12/30/16 12:44 Gram Stain Received Wound Back Pending 12/30/16 12:44 Wound Culture Received Wound Back Pending 12/30/16 01:09 Aerobic Blood Culture Received Blood Peripheral Pending 12/30/16 01:09 Anaerobic Blood Culture Received Blood Peripheral Pending Vitals/IOs Vital Signs Date Time Temp Pulse Resp B/P Pulse Ox O2 Delivery O2 Flow Rate FiO2 12/31/16 05:44 97.4 61 16 101/57 93 Intake and Output 12/30/16 12/30/16 12/31/16 08:00 16:00 00:00 Intake Total 120 ml 240 ml 480 ml Balance 120 ml 240 ml 480 ml Assessment & Plan Problem List: (1) OTHER ALZHEIMER'S DISEASE ICD Code: G30.8 Assessment & Plan Estimated LOS: days Justification for Cont. Inpt. Patient is to continue psychiatric hospitalization for stabilization, also medical care since patient needs IV antibiotic for back abscess and potential early sepsis Request HC Surrog/Guard Advoc?: Yes Job Bowling MD Dec 31, 2016 08:48
[2016-12-31] MEDS: CALCIUM/VITAMIN D 250 MG/125 U TAB PO SCH (08:49)
[2016-12-31] MEDS: QUEtiapine FUMARATE 25 MG TAB PO SCH ×2 (08:49→20:50)
[2016-12-31] MEDS: SODIUM CHLOR 0.9% 1000 ML INJ 1,000 ML IV SCH ×2 (09:00→19:00)
--- NOTE | 2016-12-31 10:28 | HHI.PR ---
Subjective Subjective Notes Resting in bed No complaints Objective Vitals/I&O Vital Signs Date Time Temp Pulse Resp B/P Pulse Ox O2 Delivery O2 Flow Rate FiO2 12/31/16 05:44 97.4 61 16 101/57 93 Labs Laboratory Tests Test 12/31/16 12/31/16 00:12 07:17 Urine Color YELLOW Urine Turbidity CLEAR Urine pH 5.5 Urine Specific [place] 1.024 Urine Protein TRACE Urine Glucose (UA) NEG Urine Ketones NEG Urine Occult Blood NEG Urine Nitrite NEG Urine Bilirubin NEG Urine Urobilinogen LESS THAN 2.0 Urine Leukocyte Esterase NEG Urine RBC 1 Urine WBC 2 Urine Mucus FEW Microscopic Urinalysis Comment CULT NOT INDICATED White Blood Count 7.7 Red Blood Count 3.53 Hemoglobin 11.0 Hematocrit 32.9 Mean Corpuscular Volume 93.4 Mean Corpuscular Hemoglobin 31.1 Mean Corpuscular Hemoglobin 33.3 Concent Red Cell Distribution Width 13.3 Platelet Count 225 Mean Platelet Volume 8.2 Neutrophils (%) (Auto) 69.1 Lymphocytes (%) (Auto) 13.4 Monocytes (%) (Auto) 14.2 Eosinophils (%) (Auto) 2.6 Basophils (%) (Auto) 0.7 Neutrophils # (Auto) 5.3 Lymphocytes # (Auto) 1.0 Monocytes # (Auto) 1.1 Eosinophils # (Auto) 0.2 Basophils # (Auto) 0.1 CBC Comment DIFF FINAL Differential Comment Sodium Level 139 Potassium Level 4.2 Chloride Level 106 Carbon Dioxide Level 27.9 Anion Gap 5 Blood Urea Nitrogen 10 Creatinine 1.02 Estimat Glomerular Filtration 71 Rate Random Glucose 87 Calcium Level 8.5 Phosphorus Level 2.8 Magnesium Level 2.2 Total Bilirubin 0.5 Aspartate Amino Transf 9 (AST/SGOT) Alanine Aminotransferase 14 (ALT/SGPT) Alkaline Phosphatase 54 Total Protein 5.7 Albumin 2.5 Date/Time Procedure Status Source Growth 12/30/16 12:44 Gram Stain - Final Resulted Wound Back 12/30/16 12:44 Wound Culture Resulted Wound Back Pending 12/30/16 01:09 Aerobic Blood Culture Received Blood Peripheral Pending 12/30/16 01:09 Anaerobic Blood Culture Received Blood Peripheral Pending Cardiovascular: Regular Lungs: Clear Abdomen: Non-distended, Non-tender Extremities: Other (large lower RIGHT back abscess s/p drainage---bandage removed and new packing placed ) A/P Assessment and Plan 76 year old male POD1 bedside I&D of back abscess -Continue dressing changes (moist 2x2 gauze backing loosely into wound) -Okay to shower ---remove packing and replace after shower -Continue antibiotics per Primary team -Follow up cultures -GS will sign off; please call with questions -Follow up with Dr. Jeffery in the office in 10-14 days I CERTIFY AND ATTEST THAT I PERSONALLY EXAMINED THIS PATIENT. MS PEREZ DOCUMENTED OUR VISIT AND ENTERED ORDERS IN THE EMR UNDER MY DIRECT SUPERVISION. I DISCUSSED THE CARE PLAN WITH THE NURSING STAFF AND FAMILY (IF PRESENT). Anyi Belcher MD, FACS Dec 31, 2016 10:27 Brandon Jeffery MD Jan 06, 2017 11:46
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
--- NOTE | 2016-12-31 14:22 | MP ---
cc: BARRIE WAGGONER M.D. DATE OF SURGERY: 12/30/2016 PREOPERATIVE DIAGNOSIS Infected sebaceous cyst, right upper back. POSTOPERATIVE DIAGNOSIS Infected sebaceous cyst, right upper back. PROCEDURE PERFORMED I&D infected sebaceous cyst, right upper back. SURGEON Barrie Waggoner [employer] TREVOR Villanueva ANESTHESIA Local. COMPLICATIONS None. INDICATION FOR PROCEDURE Mr. Bazan is a 75-year-old gentleman, currently in the psychiatric facility for dementia, who is noted to have an infected sebaceous cyst on his right upper back. Surgical consultation was requested for I&D. The risks and benefits of I&D was discussed with him and he is agreeable. DETAILS OF PROCEDURE The patient remained in his [facility] bed in room 402. An appropriate timeout was taken. The patient signed consents. The back was then prepped with Betadine solution and then injected with local anesthetic. An elliptical incision was made excising the necrotic skin directly overlying the mass. Purulent material was cleaned out. The wound was then closed with peroxide and Q-tips. Hemostasis was achieved with direct pressure. The wound was then packed with moist gauze. Dry gauze dressing was applied. I have instructed the nursing staff that the patient can shower daily with the packing removed and then they should repack the wound once a day with normal saline wet-to-dry gauze and cover it. MD ISAI Whitfield/THEODORE /8:18 PM /2:16 PM
[2016-12-31] MEDS: VANCOMYCIN 1,000 MG/NS 250 ML IV SCH ×2 (15:00)
[2016-12-31 20:00] VITALS: BP 135/63; PULSE 64; RESP 16; O2SAT 98
[2016-12-31 20:38] VITALS: BP 128/60; PULSE 67; RESP 14; TEMP 97.5; O2SAT 93
[2017-01-01] MEDS: SODIUM CHLOR 0.9% 1000 ML INJ 1,000 ML IV SCH ×2 (01:46→14:14)
[2017-01-01] MEDS ORDERED: PHARMACY ORDERED LAB XX ONE ×2 (08:45→19:45)
[2017-01-01] MEDS: CALCIUM/VITAMIN D 250 MG/125 U TAB PO SCH (09:00)
[2017-01-01] MEDS: QUEtiapine FUMARATE 25 MG TAB PO SCH ×2 (09:00→21:00)
[2017-01-01] MEDS: PRAVASTATIN SOD 20 MG TAB PO SCH (09:00)
[2017-01-01] MEDS: VANCOMYCIN 1,000 MG/NS 250 ML IV SCH ×4 (10:20→21:59)
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
[2017-01-01] MEDS: LORazepam 0.5 MG TAB PO PRN (15:59)
--- NOTE | 2017-01-01 16:29 | HHI.PYPN ---
Subjective Remarks Patient seen in his room with nurse Barbara, patient calm continues pleasantly confused. I strongly suggested him to refrain from messing with the IV. That is necessary to consider medication to help treat his infection. He seemed to process that fairly well. For now continue treatment Review of Systems Except as stated in HPI: all other systems reviewed are Neg Objective Alert: Yes [place]: Person, Place, Date Mood: Calm, Other (vigilant) Affect: Restricted Memory Intact: Recent, Remote, Comment (poor) Hallucinations: Other (denies) Delusions: Yes Delusion Type: Other (none elicited) Suicidal: Ideation (denies) Homicidal: Ideation (denies) Insight/Judgement Very poor Labs Test 01/01/17 10:05 Vancomycin Level Trough 7.2 MCG/ML Date/Time Procedure Status Source Growth 12/30/16 12:44 Gram Stain - Final Complete Wound Back 12/30/16 12:44 Wound Culture - Final Complete S. Aureus Mrsa 12/30/16 01:09 Aerobic Blood Culture - Preliminary Resulted Blood Peripheral NO GROWTH IN 2 DAYS 12/30/16 01:09 Anaerobic Blood Culture - Preliminary Resulted Blood Peripheral NO GROWTH IN 2 DAYS Vitals/IOs Vital Signs Date Time Temp Pulse Resp B/P Pulse Ox O2 Delivery O2 Flow Rate FiO2 12/31/16 20:38 97.5 67 14 128/60 93 Intake and Output 12/31/16 12/31/16 01/01/17 08:00 16:00 00:00 Intake Total 240 ml 1440 ml 840 ml Balance 240 ml 1440 ml 840 ml Assessment & Plan Problem List: (1) OTHER ALZHEIMER'S DISEASE ICD Code: G30.8 Assessment & Plan Estimated LOS: days she continues demented confused though needing redirection and interventions to prevent him from playing with his IV Justification for Cont. Inpt. At this time patient will decompensate a placed in lower level of care Discharge Planning To be determined Request HC Surrog/Guard Advoc?: Yes Akshat Diaz MD Jan 01, 2017 16:29
[2017-01-01 18:30] VITALS: BP 95/58; PULSE 72; RESP 15; TEMP 97.7; O2SAT 96
--- NOTE | 2017-01-02 08:51 | HHI.PYPN ---
Subjective Remarks Patient seen in his room with nurse Barbara, patient continues confused demented, though no significant behavioral problems except for the past fact that he continues to manipulate his IV needing frequent reinsertion. I continue to focus with his need for cooperation to treat his MRSA infection. Patient given verbal acknowledgment to cooperate. For now continue treatment Review of Systems Except as stated in HPI: all other systems reviewed are Neg Objective Alert: Yes [place]: Person, Place, Date Mood: Calm, Other (vigilant) Affect: Restricted Memory Intact: Recent, Remote, Comment (poor) Hallucinations: Other (denies) Delusions: Yes Delusion Type: Other (none elicited) Suicidal: Ideation (denies) Homicidal: Ideation (denies) Insight/Judgement Very poor Labs Test 01/01/17 10:05 Vancomycin Level Trough 7.2 MCG/ML Date/Time Procedure Status Source Growth 12/30/16 12:44 Gram Stain - Final Complete Wound Back 12/30/16 12:44 Wound Culture - Final Complete S. Aureus Mrsa 12/30/16 01:09 Aerobic Blood Culture - Preliminary Resulted Blood Peripheral NO GROWTH IN 2 DAYS 12/30/16 01:09 Anaerobic Blood Culture - Preliminary Resulted Blood Peripheral NO GROWTH IN 2 DAYS Vitals/IOs Vital Signs Date Time Temp Pulse Resp B/P Pulse Ox O2 Delivery O2 Flow Rate FiO2 01/01/17 18:30 97.7 72 15 95/58 96 Intake and Output 01/01/17 01/01/17 01/02/17 08:00 16:00 00:00 Intake Total 0 ml 1440 ml 720 ml Balance 0 ml 1440 ml 720 ml Assessment & Plan Problem List: (1) OTHER ALZHEIMER'S DISEASE ICD Code: G30.8 Assessment & Plan Estimated LOS: days patient continues demented confused, trying some difficulty with tolerating the IVs related to treatment for his MRSA. For now continue treatment Justification for Cont. Inpt. At this time patient would significantly decompensated placed in a lower level of care Discharge Planning To be determined Request HC Surrog/Guard Advoc?: Yes Akshat Diaz MD Jan 02, 2017 08:51
[2017-01-02] MEDS: PRAVASTATIN SOD 20 MG TAB PO SCH (08:55)
[2017-01-02] MEDS: CALCIUM/VITAMIN D 250 MG/125 U TAB PO SCH (08:55)
[2017-01-02] MEDS: QUEtiapine FUMARATE 25 MG TAB PO SCH ×2 (08:55→21:15)
[2017-01-02 11:30] VITALS: BP 177/75; PULSE 60; RESP 16; TEMP 98.2; O2SAT 95
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
[2017-01-02 12:41] VITALS: BP 95/57; PULSE 74
[2017-01-02 17:52] VITALS: BP 146/72; PULSE 70; RESP 17; TEMP 97.1
[2017-01-02] MEDS: VANCOMYCIN 1,000 MG/NS 250 ML IV SCH ×2 (21:15)
[2017-01-03] VITALS: BP 132/72; PULSE 82; RESP 16; TEMP 98
[2017-01-03 05:54] VITALS: BP 114/66; PULSE 58; RESP 16; TEMP 97.3; O2SAT 94
[2017-01-03 08:26] LABS: AUTOMATED NEUTROPHIL # 4.4 TH/MM3 (1.8-7.7); BASOPHIL # 0.1 TH/MM3 (0-0.2); BASOPHIL % 0.7 % (0.0-2.0); EOSINOPHIL # 0.3 TH/MM3 (0-0.4); EOSINOPHIL % 4.6 % (0.0-4.0); HEMO FLAGS DIFF FINAL; LYMPH % 17.3 % (9.0-44.0); LYMPHOCYTE # 1.2 TH/MM3 (1.0-4.8); MEAN CELL VOLUME 94.5 FL (80.0-100.0); MEAN CORPUSCULAR HEMOGLOBIN 31.4 PG (27.0-34.0); MEAN CORPUSCULAR HGB CONC 33.2 % (32.0-36.0); MONO % 12.9 % (0.0-8.0); NEUT % 64.5 % (16.0-70.0); PLATELET COUNT 292 TH/MM3 (150-450); RED BLOOD COUNT 4.12 MIL/MM3 (4.50-5.90); RED CELL DISTRIBUTION WIDTH 13.4 % (11.6-17.2); WHITE BLOOD COUNT 6.9 TH/MM3 (4.0-11.0)
[2017-01-03 08:55] LABS: BICARBONATE 24.7 MEQ/L (21.0-32.0); POTASSIUM 4.1 MEQ/L (3.5-5.1)
[2017-01-03] MEDS: QUEtiapine FUMARATE 25 MG TAB PO SCH ×2 (09:00→21:02)
[2017-01-03] MEDS: CALCIUM/VITAMIN D 250 MG/125 U TAB PO SCH (09:00)
[2017-01-03] MEDS: PRAVASTATIN SOD 20 MG TAB PO SCH (09:00)
--- NOTE | 2017-01-03 10:24 | HHI.PYPN ---
Subjective Remarks Patient was seen for psychiatric follow-up today, his case was widely discussed in treatment team: SW, nurses, Therapies and myself. On on evaluation today patient was found calm, cooperative and very pleasant, he seems to be pleasantly confused, he knows where he is, he notices [place], [facility], he knows exactly today's date, but he doesn't remember the reason he is in the hospital, he doesn't seem to remember aspects of his life previous to the hospitalization and he uses confabulation in order to fill up memory. He reports good mood, denies suicidal ideation, denies homicidal ideation, denies visual and auditory hallucinations.. No agitation, no aggressive behavior observed or reported, patient is fully compliant with medication. Review of Systems Other No somatic complaints Objective Alert: Yes [place]: Person, Place, Date Mood: Calm, Other (vigilant) Affect: Restricted Memory Intact: Recent, Remote, Comment (poor) Hallucinations: Other (denies) Delusions: Yes Delusion Type: Other (none elicited) Suicidal: Ideation (denies) Homicidal: Ideation (denies) Insight/Judgement poor Labs Test 01/03/17 08:10 White Blood Count 6.9 TH/MM3 Red Blood Count 4.12 MIL/MM3 Hemoglobin 12.9 GM/DL Hematocrit 39.0 % Mean Corpuscular Volume 94.5 FL Mean Corpuscular Hemoglobin 31.4 PG Mean Corpuscular Hemoglobin 33.2 % Concent Red Cell Distribution Width 13.4 % Platelet Count 292 TH/MM3 Mean Platelet Volume 7.9 FL Neutrophils (%) (Auto) 64.5 % Lymphocytes (%) (Auto) 17.3 % Monocytes (%) (Auto) 12.9 % Eosinophils (%) (Auto) 4.6 % Basophils (%) (Auto) 0.7 % Neutrophils # (Auto) 4.4 TH/MM3 Lymphocytes # (Auto) 1.2 TH/MM3 Monocytes # (Auto) 0.9 TH/MM3 Eosinophils # (Auto) 0.3 TH/MM3 Basophils # (Auto) 0.1 TH/MM3 CBC Comment DIFF FINAL Differential Comment Sodium Level 139 MEQ/L Potassium Level 4.1 MEQ/L Chloride Level 106 MEQ/L Carbon Dioxide Level 24.7 MEQ/L Anion Gap 8 MEQ/L Blood Urea Nitrogen 11 MG/DL Creatinine 0.90 MG/DL Estimat Glomerular Filtration 82 ML/MIN Rate Random Glucose 76 MG/DL Calcium Level 8.6 MG/DL Date/Time Procedure Status Source Growth 12/30/16 12:44 Gram Stain - Final Complete Wound Back 12/30/16 12:44 Wound Culture - Final Complete S. Aureus Mrsa 12/30/16 01:09 Aerobic Blood Culture - Preliminary Resulted Blood Peripheral NO GROWTH IN 3 DAYS 12/30/16 01:09 Anaerobic Blood Culture - Preliminary Resulted Blood Peripheral NO GROWTH IN 3 DAYS Vitals/IOs Vital Signs Date Time Temp Pulse Resp B/P Pulse Ox O2 Delivery O2 Flow Rate FiO2 01/03/17 05:54 97.3 58 16 114/66 94 Intake and Output 01/02/17 01/02/17 01/03/17 08:00 16:00 00:00 Intake Total 360 ml 360 ml 600 ml Balance 360 ml 360 ml 600 ml Assessment & Plan Problem List: (1) OTHER ALZHEIMER'S DISEASE ICD Code: G30.8 (2) Dementia without behavioral disturbance Assessment & Plan: Patient will continue psychiatric hospitalization for safety , stabilization, also needs medical treatment of MRSA. Since the patient is oriented by 3, uses a lot of confabulation, and just recent and remote memory seems to be in per, rather than an immediate, make me think more in a subcortical dementia. ICD Code: F03.90 Assessment & Plan Estimated LOS: days Justification for Cont. Inpt. Patient is negative hospitalization for safety, stabilization, and in order to coordinate a safe discharge. Currently in IV treatment of MRSA. Request HC Surrog/Guard Advoc?: Yes Job Bowling MD Jan 03, 2017 10:23
[2017-01-03] MEDS: VANCOMYCIN 1,000 MG/NS 250 ML IV SCH ×2 (15:00)
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
[2017-01-03 17:36] VITALS: BP 111/58; PULSE 68; RESP 16; TEMP 97.6; O2SAT 95
[2017-01-04 06:09] VITALS: BP 121/57; PULSE 59; RESP 16; TEMP 97.9; O2SAT 94
[2017-01-04] MEDS: CALCIUM/VITAMIN D 250 MG/125 U TAB PO SCH (09:00)
[2017-01-04] MEDS: QUEtiapine FUMARATE 25 MG TAB PO SCH (09:00)
[2017-01-04] MEDS: VANCOMYCIN 1,000 MG/NS 250 ML IV SCH ×2 (09:00)
[2017-01-04] MEDS: PRAVASTATIN SOD 20 MG TAB PO SCH (09:00)
--- NOTE | 2017-01-04 11:30 | HHI.PYPN ---
Subjective Remarks Patient was seen today for psychiatric reevaluation, was found laying in his bed , calm, cooperative and pleasant, pleasantly confused, he denies depressive symptoms, he denies anxiety, he says that he feels actually very good here, denies any pain or distress, he denies suicidal or homicidal ideation, he denies visual and auditory hallucinations. No episodes of hostility, agitation or aggressive behavior observed or reported. Patient has been fully compliant to medications, no significant side effects. Review of Systems Other No somatic complaints Objective Alert: Yes [place]: Person, Place, Date Mood: Calm, Other (vigilant) Affect: Restricted Memory Intact: Recent, Remote, Comment (poor) Hallucinations: Other (denies) Delusions: Yes Delusion Type: Other (none elicited) Suicidal: Ideation (denies) Homicidal: Ideation (denies) Insight/Judgement poor Labs Date/Time Procedure Status Source Growth 12/30/16 12:44 Gram Stain - Final Complete Wound Back 12/30/16 12:44 Wound Culture - Final Complete S. Aureus Mrsa Vitals/IOs Vital Signs Date Time Temp Pulse Resp B/P Pulse Ox O2 Delivery O2 Flow Rate FiO2 01/04/17 06:09 97.9 59 16 121/57 94 Intake and Output 01/03/17 01/03/17 01/03/17 07:59 15:59 23:59 Intake Total 240 ml 600 ml 720 ml Balance 240 ml 600 ml 720 ml Assessment & Plan Problem List: (1) OTHER ALZHEIMER'S DISEASE ICD Code: G30.8 (2) Dementia without behavioral disturbance ICD Code: F03.90 Assessment & Plan Estimated LOS: days Justification for Cont. Inpt. Patient is to continue psychiatrist hospitalization for stabilization, at this moment receiving IV antibiotics due to MRSA infection in his back. Request HC Surrog/Guard Advoc?: Yes Job Bowling MD Jan 04, 2017 11:30
[2017-01-04] MEDS ORDERED: SODIUM HYPOCHLORITE 0.25% 500 ML BTL TOPICAL SCH (12:00)
[2017-01-04] MEDS ORDERED: PRAV20TA PO (13:10)
[2017-01-04] MEDS ORDERED: QUET1TAB7 PO (13:10)
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
[2017-01-04] MEDS ORDERED: BACT800T5 PO (13:44)
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
[2017-01-04] MEDS ORDERED: SULFAMETHOXAZOLE-TRIMETHOPRIM DS 800-160 MG TAB PO SCH ×2 (21:00)
== END 2017-01-04 15:00 | DRG 56 ==
LOC: NEDAMB 11:38 → NEDA 20:35 → H250 22:35 → H4EA 12-29 18:05
PROVIDERS: ADMIT Psychiatry & Neurology Psychiatry; ATTEND Psychiatry & Neurology Psychiatry
PROC: 0H96XZX Drainage of Back Skin, External Approach, Diagnostic (ICD-10-PCS; principal; 2016-12-30)
DX: G30.9 Alzheimer's disease, unspecified (principal); A41.9 Sepsis, unspecified organism; L02.212 Cutaneous abscess of back [any part, except buttock and flank]; F02.81 Dementia in other diseases classified elsewhere, unspecified severity, with behavioral disturbance; L03.312 Cellulitis of back [any part except buttock and flank]; Z91.14 Patient's other noncompliance with medication regimen; E78.5 Hyperlipidemia, unspecified; F17.210 Nicotine dependence, cigarettes, uncomplicated; L72.3 Sebaceous cyst; B95.62 Methicillin resistant Staphylococcus aureus infection as the cause of diseases classified elsewhere
CPT/HCPCS: 80048; 80053; 80061; 80202; 80307; 80320; 81001; 83036; 83605; 83735; 84100; 84439; 84443; 85025; 85027; 86403; 87040; 87070; 87147; 87186; 87205; 99284; J2543; J3370; J7030; J7040; J7050

== ENCOUNTER 2018-08-05 02:21 | Inpatient (IN) ==
[2018-08-05] MEDS ORDERED: Sod Chloride 0.9% Inj 1,000 ML IV.CONT SCH ×2 (02:45→04:15)
--- NOTE | 2018-08-05 02:48 | ED ---
HPI General Chief Complaint: Fall Stated Complaint: medical Time Seen by Provider: 08/05/18 02:35 History of Present Illness HPI Narrative: Patient is a 77-year-old male with history of Alzheimer disease, dementia was able to ambulate with help, fell yesterday at nursing home facility and injured the right hip. X-ray was done which shows intratrochanteric fracture of the right hip. Patient complain mild right hip pain unable to move right leg. No neurovascular deficit. Related Data Home Medications Medication Instructions Recorded Confirmed acetaminophen 650 mg PO Q8HR PRN 08/05/18 08/05/18 aripiprazole [Abilify] 5 mg PO DAILY 08/05/18 08/05/18 calcium carbonate [Calcium 600] 600 mg PO DAILY 08/05/18 08/05/18 cholecalciferol (vitamin D3) 4,000 unit PO DAILY 08/05/18 08/05/18 [Vitamin D3] ibuprofen 600 mg PO QID PRN 08/05/18 08/05/18 memantine [Namenda XR] 28 mg PO DAILY 08/05/18 08/05/18 pravastatin 20 mg PO DAILY 08/05/18 08/05/18 Allergies Allergy/AdvReac Type Severity Reaction Status Date / Time *MDRO Multi-Drug Resistant AdvReac Unknown MRSA Uncoded 01/03/17 09:37 Organism Review of Systems ROS: all other systems reviewed are negative Musculoskeletal Reports myalgias and Reports arthralgias PMFSH Social History Social History Substance History: No History of Abuse Second Hand Smoke Exposure: No Smoking Status: Never smoker How Often Do You Have a Drink Containing Alcohol: Never Recent Travel in [facility] within the Last 8 Weeks: No Recent Out of Country Travel within the Last 8 Weeks: No Immunization History Tetanus Immunization: Unsure Exam Narrative Exam Narrative: GENERAL: 77-year-old male in no apparent distress. SKIN: Focused skin assessment warm/dry. HEAD: Atraumatic. Normocephalic. EYES: Pupils equal and round. No scleral icterus. No injection or drainage. ENT: No nasal bleeding or discharge. Mucous membranes pink and moist. NECK: Trachea midline. No JVD. CARDIOVASCULAR: Regular rate and rhythm. No murmur appreciated. RESPIRATORY: No accessory muscle use. Clear to auscultation. Breath sounds equal bilaterally. GASTROINTESTINAL: Abdomen soft, non-tender, nondistended. Hepatic and splenic margins not palpable. MUSCULOSKELETAL: Right leg mildly externally rotated, tenderness over right hip , no neurovascular deficit. NEUROLOGICAL: Awake and alert. No obvious cranial nerve deficits. Motor grossly within normal limits. Normal speech. PSYCHIATRIC: Appropriate mood and affect; insight and judgment normal. Course Initial Documented Vital Signs Temperature 98 F 08/05/18 02:25 Pulse Rate 84 08/05/18 02:25 Respiratory Rate 23 08/05/18 02:25 Blood Pressure 162/72 H 08/05/18 02:25 Pulse Oximetry 95 08/05/18 02:25 Last Documented Vital Signs Temperature 97.8 F 08/05/18 20:00 Pulse Rate 79 08/05/18 20:00 Respiratory Rate 17 08/05/18 20:00 Blood Pressure 140/65 08/05/18 20:00 Pulse Oximetry 97 08/05/18 20:00 Medical Decision Making MDM Narrative Medical decision making narrative: Patient has right hip fracture, images will be repeated, blood work ordered. 0415: Blood work done, x-ray shows right hip fracture, intertrochanteric. Case discussed with orthopedist Dr. Vale who asked hospitalist to be involved in the case. dmitted patient under her service. Medical Screen Exam Complete: Yes Emergency Medical Condition: Yes Lab Data Result diagrams: 08/05/18 03:00 Lab Results 08/05/18 08/05/18 08/05/18 Range/Units 03:00 03:00 03:00 WBC 8.3 (4.0-11.0) th/mm3 RBC 3.79 L (4.50-5.90) mil/mm3 Hgb 12.1 L (13.0-17.0) gm/dL POC Hgb (Calc) 11.6 L (13.0-17.0) g/dL Hct 35.1 L (39.0-51.0) % POC Hct 34.0 L (39-51.0) % MCV 92.7 (80.0-100.0) fL MCH 31.9 (27.0-34.0) pg MCHC 34.5 (32.0-36.0) % RDW 14.2 (11.6-17.2) % Plt Count 173 (150-450) th/mm3 MPV 8.8 (7.0-11.0) fL Neut % (Auto) 76.2 H (16.0-70.0) % Lymph % (Auto) 10.2 (9.0-44.0) % [place] % (Auto) 13.1 H (0.0-8.0) % Eos % (Auto) 0.1 (0.0-4.0) % Baso % (Auto) 0.4 (0.0-2.0) % Neut # (Auto) 6.3 (1.8-7.7) th/mm3 Lymph # (Auto) 0.8 L (1.0-4.8) th/mm3 [place] # (Auto) 1.1 H (0.0-0.9) th/mm3 Eos # (Auto) 0.0 (0.0-0.4) th/mm3 Baso # (Auto) 0.0 (0.0-0.2) th/mm3 WBC Differential . Differential Comment Auto diff final PT 10.8 (9.8-11.6) sec INR 1.1 Ratio APTT 27.3 (24.3-30.1) sec POC Sodium 141 (137-144) mmol/L POC Potassium 4.2 (3.6-5.0) mmol/L POC Chloride 105 (102-111) mmol/L POC BUN 28 H (5-21) mg/dL POC Creatinine 0.9 (0.6-1.3) mg/dL POC Glucose 98 (68-110) mg/dL Nasal Screen MRSA (PCR) (Negative) Urine Opiates Screen (Neg) Ur Barbiturates Screen (Neg) Ur Amphetamines Screen (Neg) U Benzodiazepines Scrn (Neg) Urine Cocaine Screen (Neg) U Cannabinoids Screen (Neg) Staph aureus (PCR) (Negative) Blood Type Blood Type Recheck Antibody Screen 08/05/18 08/05/18 08/05/18 Range/Units 03:00 03:00 05:37 WBC (4.0-11.0) th/mm3 RBC (4.50-5.90) mil/mm3 Hgb (13.0-17.0) gm/dL POC Hgb (Calc) (13.0-17.0) g/dL Hct (39.0-51.0) % POC Hct (39-51.0) % MCV (80.0-100.0) fL MCH (27.0-34.0) pg MCHC (32.0-36.0) % RDW (11.6-17.2) % Plt Count (150-450) th/mm3 MPV (7.0-11.0) fL Neut % (Auto) (16.0-70.0) % Lymph % (Auto) (9.0-44.0) % [place] % (Auto) (0.0-8.0) % Eos % (Auto) (0.0-4.0) % Baso % (Auto) (0.0-2.0) % Neut # (Auto) (1.8-7.7) th/mm3 Lymph # (Auto) (1.0-4.8) th/mm3 [place] # (Auto) (0.0-0.9) th/mm3 Eos # (Auto) (0.0-0.4) th/mm3 Baso # (Auto) (0.0-0.2) th/mm3 WBC Differential Differential Comment PT (9.8-11.6) sec INR Ratio APTT (24.3-30.1) sec POC Sodium (137-144) mmol/L POC Potassium (3.6-5.0) mmol/L POC Chloride (102-111) mmol/L POC BUN (5-21) mg/dL POC Creatinine (0.6-1.3) mg/dL POC Glucose (68-110) mg/dL Nasal Screen MRSA (PCR) Negative (Negative) Urine Opiates Screen Neg (Neg) Ur Barbiturates Screen Neg (Neg) Ur Amphetamines Screen Neg (Neg) U Benzodiazepines Scrn Neg (Neg) Urine Cocaine Screen Neg (Neg) U Cannabinoids Screen Neg (Neg) Staph aureus (PCR) Negative (Negative) Blood Type A Positive Blood Type Recheck Required Antibody Screen Negative Imaging Data Radiologist's impression: Hip X-Ray 08/05/18 00:00 CONCLUSION: Good position and alignment on this postoperative study. Chest X-Ray 08/05/18 02:41 CONCLUSION: Age-indeterminate elevation of the left diaphragm and slight bunting of the left costophrenic angle. Hip X-Ray 08/05/18 02:41 CONCLUSION: Intertrochanteric fracture right hip Pelvis X-Ray 08/05/18 02:41 CONCLUSION: Intertrochanteric fracture of the right hip Discharge Plan Discharge Disposition Patient Disposition: 30 Still Patient Discharge Condition Condition: Fair Discharge Details Diagnosis: Fall as cause of accidental injury at home as place of occurrence, Closed intertrochanteric fracture of right hip Physicians Team ED Provider: Good Quigley Primary Care Provider: Usman Ceron Attending Provider: Ana Rutledge Other Providers: Nahum Vale ; Ana Rutledge Status ED Status: Left Department Discharge Information Discharge Date/Time: 08/05/18 04:59
[2018-08-05 03:26] LABS: Baso % (Auto) 0.4 % (0.0-2.0); Eos % (Auto) 0.1 % (0.0-4.0); Hematocrit 35.1 % (39.0-51.0); Hemoglobin 12.1 gm/dL (13.0-17.0); Lymph # (Auto) 0.8 th/mm3 (1.0-4.8); Lymph % (Auto) 10.2 % (9.0-44.0); Mean Corpuscular HGB Conc 34.5 % (32.0-36.0); Mean Corpuscular Hemoglobin 31.9 pg (27.0-34.0); Mean Corpuscular Volume 92.7 fL (80.0-100.0); Mean Platelet Volume 8.8 fL (7.0-11.0); Mono # (Auto) 1.1 th/mm3 (0.0-0.9); Mono % (Auto) 13.1 % (0.0-8.0); Neut # (Auto) 6.3 th/mm3 (1.8-7.7); Neut % (Auto) 76.2 % (16.0-70.0); Platelet Count 173 th/mm3 (150-450); Red Blood Count 3.79 mil/mm3 (4.50-5.90); Red Cell Distribution Width 14.2 % (11.6-17.2); White Blood Count 8.3 th/mm3 (4.0-11.0)
--- NOTE | 2018-08-05 03:32 | XR ---
EXAM DATE: 08/05/2018 2:41 AM EDT AGE/SEX: 77 years / Male INDICATIONS: Trauma due to fall 3 weeks ago, fractured hip. CLINICAL DATA: This is the patient's initial encounter. Patient reports that signs and symptoms have been present for 3 weeks and indicates a pain score of 0/10. MEDICAL/SURGICAL HISTORY: None. None. COMPARISON: No prior exams available for comparison. FINDINGS: There is mild asymmetric elevation of the left diaphragm with slight blunting at the left costophreni c angle. There is no definite evidence of focal infiltrate. Accounting for moderate rotation, the car diac contours are probably satisfactory. Slight apical pleural thickening. CONCLUSION: Age-indeterminate elevation of the left diaphragm and slight bunting of the left costophrenic angle. Electronically signed by: Akshat Morel MD 08/05/2018 3:31 AM EDT
--- NOTE | 2018-08-05 03:33 | XR ---
EXAM DATE: 08/05/2018 2:41 AM EDT AGE/SEX: 77 years / Male INDICATIONS: Trauma due to fall 3 weeks ago, fratured hip. CLINICAL DATA: This is the patient's initial encounter. Patient reports that signs and symptoms have been present for 3 weeks and indicates a pain score of 2/10. MEDICAL/SURGICAL HISTORY: None. None. COMPARISON: No prior exams available for comparison. FINDINGS: There is a moderately angulated and mildly displaced intertrochanteric fracture of the right hip. Fem oral head remains situated over the acetabulum. No displaced pelvic fracture. Contralateral left hip is grossly intact. CONCLUSION: Intertrochanteric fracture of the right hip Electronically signed by: Akshat Morel MD 08/05/2018 3:31 AM EDT
--- NOTE | 2018-08-05 03:36 | XR ---
EXAM DATE: 08/05/2018 2:41 AM EDT AGE/SEX: 77 years / Male INDICATIONS: Fracture. CLINICAL DATA: This is the patient's initial encounter. Patient reports that signs and symptoms have been present for 3 weeks and indicates a pain score of 2/10. MEDICAL/SURGICAL HISTORY: None. None. COMPARISON: [facility] [place], PELVIS AP 1V, 08/05/2018. . FINDINGS: Moderately angulated and displaced intertrochanteric fracture of the right hip with apex lateral supe rior angulation. Femoral head remains situated over the acetabulum. Adjacent pelvis appears grossly i ntact. CONCLUSION: Intertrochanteric fracture right hip Electronically signed by: Akshat Morel MD 08/05/2018 3:35 AM EDT
[2018-08-05 03:38] LABS: Activated Partial Thrombo Time 27.3 sec (24.3-30.1); INR 1.1 Ratio; Prothrombin Time 10.8 sec (9.8-11.6)
[2018-08-05 03:46] LABS: Amphetamine Screen,Urine Neg (Neg); Barbiturate Screen,Urine Neg (Neg); Cannabinoid Screen,Urine Neg (Neg); Cocaine Screen,Urine Neg (Neg)
[2018-08-05 03:48] LABS: Opiate Screen,Urine Neg (Neg)
[2018-08-05] MEDS ORDERED: Bisacodyl 10 MG Supp RECTAL PRN ×2 (04:15→13:25)
[2018-08-05] MEDS ORDERED: Morphine Sulfate Inj 2 MG/ML Vial IV.PUSH PRN (04:15)
[2018-08-05] MEDS ORDERED: Acetaminophen 325 MG Tablet PO PRN (04:15)
--- NOTE | 2018-08-05 04:34 | P.HPIM ---
History of Present Illness Primary Care Physician: Usman Ceron MD History of Present Illness: This is a 77-year-old male with a PMH of HTN, Hyperlipidemia and Dementia who was sent to the ER from SNF for right hip fracture. Pt had apparent fall at SNF , details unknown, outpatient X-ray 08/04/18 showing right hip fracture and sent to ER for further evaluation. Pt reports right hip pain, moderate, worse w/ movement. No other injuries reported. On arrival, BP 162/72, HR 84, O2 sat 95 % on RA, Afebrile. CBC essentially unremarkable. INR 1.1. Chemistry unremarkable except for BUN 28. Urine Drug Screen negative. CXR with slight blunting left costophrenic angle elevation of left diaphragm. Hip/Pelvis X-ray intertrochanteric fracture right hip. Ortho consulted by ER physician, plan for surgical intervention in am. - Diagnosis (1) Fall (2) Hip fracture, right (3) Dementia Inpatient Certification: I certify that the inpatient services were ordered in accordance with Medicare regulations governing the order. This includes certification that hospital inpatient services are reasonable and necessary and in the case of services not specified as inpatient-only under 42 CFR 419.22(n), that they are appropriately provided as inpatient services in accordance to with the 2-midnight benchmark under 43 CFR 412.3(e) Estimated Total Length of Stay (Days): 2 Plans for Post Hospital Care: Not yet determined Review of Systems PAST FAMILY HISTORY: Unknown All other systems reviewed negative except as stated in HPI PMFSH - History History Provided By: Medical Record, [employer] / EMT - Medical History Medical History: Medical History (Last Updated 08/05/18 @ 02:28 by Zev Harrison) Alzheimer disease Dementia Hyperlipidemia - Tobacco History Second Hand Smoke Exposure: No Tobacco Use In Past 30 Days: No Smoking Status: Never smoker - Alcohol History How Often Do You Have a Drink Containing Alcohol: Never - Substance Use History Substance History: No History of Abuse - Travel History Recent Travel in the [place] Within the Last 8 Weeks: No Recent Travel Out of the Country Within the Last 8 Weeks: No - Immunization History Tetanus Immunization: Unsure Medications and Allergies Active Medications: Active Medications Acetaminophen (Tylenol) 650 mg PO Q4H PRN PRN Reason: Temp > 100.4 Al Hydroxide/Mg Hydroxide (Milk Of Magnesia Liq) 30 ml PO Q12H PRN PRN Reason: Mild Constipation Aripiprazole (Abilify) 5 mg PO DAILY [facility] Bisacodyl (Dulcolax Supp) 10 mg RECTAL DAILY PRN PRN Reason: SEVERE CONSITIPATION Sodium Chloride (Ns Inj) 1,000 mls @ 100 mls/hr IV.CONT .Q10H [facility] Last Admin: 08/05/18 04:18 Dose: Not Given Lactulose (Lactulose Liq) 30 ml PO DAILY PRN PRN Reason: SEVERE CONSITIPATION Morphine Sulfate (Morphine Inj) 2 mg IV.PUSH Q4H PRN PRN Reason: PAIN 6-10 Non-Formulary Medication (Calcium Carbonate [Calcium 600]) 600 mg PO DAILY [facility] Non-Formulary Medication (Memantine [Namenda Xr]) 28 mg PO DAILY [facility] Ondansetron HCl (Zofran Inj) 4 mg IV.PUSH Q6H PRN PRN Reason: NAUSEA OR VOMITING Pravastatin Sodium (Pravachol) 20 mg PO DAILY [facility] Senna/Docusate Sodium (Bindu-Colace) 1 tab PO BID [facility] Sennosides (Senokot) 17.2 mg PO Q12H PRN PRN Reason: Moderate Constipation Sodium Chloride (Ns Flush) 2 ml IV.FLUSH PRN PRN PRN Reason: FLUSH AFTER USING IV ACCESS Allergies Allergy/AdvReac Type Severity Reaction Status Date / Time *MDRO Multi-Drug Resistant AdvReac Unknown MRSA Uncoded 01/03/17 09:37 Organism Home Medications Medication Instructions Recorded Confirmed Type acetaminophen 650 mg PO Q8HR PRN 08/05/18 08/05/18 History aripiprazole [Abilify] 5 mg PO DAILY 08/05/18 08/05/18 History calcium carbonate [Calcium 600] 600 mg PO DAILY 08/05/18 08/05/18 History cholecalciferol (vitamin D3) 4,000 unit PO DAILY 08/05/18 08/05/18 History [Vitamin D3] ibuprofen 600 mg PO QID PRN 08/05/18 08/05/18 History memantine [Namenda XR] 28 mg PO DAILY 08/05/18 08/05/18 History pravastatin 20 mg PO DAILY 08/05/18 08/05/18 History Exam Vital signs: Vital Signs 08/05/18 02:25 08/05/18 04:18 Temperature 98 F Pulse Rate 84 Respiratory Rate 23 16 Blood Pressure 162/72 H Pulse Oximetry 95 Intake & Output 08/04/18 08/04/18 08/05/18 06:59 18:59 06:59 Weight 83.915 kg Narrative: PE: GENERAL: Elderly white male in no acute distress. SKIN: Focused skin assessment warm and dry. HEENT: PERRLA, EOMI. No scleral icterus or conjunctival pallor. No lid lag or facial droop. CARDIOVASCULAR: Regular rate and rhythm. No obvious murmurs to auscultation. No chest tenderness to palpation. RESPIRATORY: No obvious rhonchi or wheezing. Clear to auscultation. Breath sounds equal bilaterally. GASTROINTESTINAL: Abdomen soft, non-tender, nondistended. BS normal. MUSCULOSKELETAL: Extremities without clubbing, cyanosis, or edema. No obvious deformities. Decreased ROM of RLE due to injury. NEUROLOGICAL: Awake, alert. No focal neurologic deficits. Moving both upper and lower extremities spontaneously. PSYCHIATRIC: Appropriate mood and affect. Insight and judgment normal. Results - Labs CBC & Chem 7: 08/05/18 03:00 Labs: Short CBC 08/05/18 Range/Units 03:00 WBC 8.3 (4.0-11.0) th/mm3 Hgb 12.1 L (13.0-17.0) gm/dL Hct 35.1 L (39.0-51.0) % Plt Count 173 (150-450) th/mm3 - Imaging Impressions Chest X-Ray 08/05/18 02:41 CONCLUSION: Age-indeterminate elevation of the left diaphragm and slight bunting of the left costophrenic angle. Hip X-Ray 08/05/18 02:41 CONCLUSION: Intertrochanteric fracture right hip Pelvis X-Ray 08/05/18 02:41 CONCLUSION: Intertrochanteric fracture of the right hip Caprini VTE Risk Assessment Caprini VTE Risk Assessment: No/Low Risk (score <= 1) Caprini Risk Assessment Model: Point Value = 1 Point Value = 2 Point Value = 3 Point Value = 5 Age 41-60 Minor surgery BMI > 25 kg/m2 Swollen legs Varicose veins or History of unexplained or recurrent spontaneous Oral contraceptives or hormone replacement Sepsis (< 1 month) Serious lung disease, including pneumonia (< 1 month) Abnormal pulmonary function Acute myocardial infarction Congestive heart failure (< 1 month) History of inflammatory bowel disease Medical patient at bed rest Age 61-74 Arthroscopic surgery Major open surgery (> 45 min) Laparoscopic surgery (> 45 min) Malignancy Confined to bed (> 72 hours) Immobilizing plaster cast Central venous access Age >= 75 History of VTE Family history of VTE Factor V Leiden Prothrombin [id number] Lupus anticoagulant Anticardiolipin antibodies Elevated serum homocysteine Heparin-induced thrombocytopenia Other congenital or acquired thrombophilia Stroke (< 1 month) Elective arthroplasty Hip, pelvis, or leg fracture Acute spinal cord injury (< 1 month) Prophylaxis Regimen: Total Risk Factor Score Risk Level Prophylaxis Regimen 0-1 Low Early ambulation 2 Moderate Order ONE of the following: *Sequential Compression Device (SCD) *Heparin 5000 units SQ BID 3-4 Higher Order ONE of the following medications: *Heparin 5000 units SQ TID *Enoxaparin/Lovenox 40 mg SQ daily (WT < 150 kg, CrCl > 30 mL/min) *Enoxaparin/Lovenox 30 mg SQ daily (WT < 150 kg, CrCl > 10-29 mL/min) *Enoxaparin/Lovenox 30 mg SQ BID (WT < 150 kg, CrCl > 30 mL/min) AND/OR *Sequential Compression Device (SCD) 5 or more Highest Order ONE of the following medications: *Heparin 5000 units SQ TID (Preferred with Epidurals) *Enoxaparin/Lovenox 40 mg SQ daily (WT < 150 kg, CrCl > 30 mL/min) *Enoxaparin/Lovenox 30 mg SQ daily (WT < 150 kg, CrCl > 10-29 mL/min) *Enoxaparin/Lovenox 30 mg SQ BID (WT < 150 kg, CrCl > 30 mL/min) AND *Sequential Compression Device (SCD) Assessment and Plan - Assessment (1) Fall Code(s): W19.XXXA - Unspecified fall, initial encounter Status: Acute (2) Hip fracture, right Code(s): S72.001A - Fracture of unspecified part of neck of right femur, initial encounter for closed fracture Status: Acute (3) Dementia Code(s): F03.90 - Unspecified dementia without behavioral disturbance Status: Acute - Plan A/P: 1. Fall: s/p mechanical fall at SNF, no head trauma or LOC reported, no other injuries noted. 2. Right Hip Fx: Secondary to above, Hip/Pelvis X-ray w/ intertrochanteric right hip fracture, images reviewed. Ortho consulted by ER physician, plan is for surgical intervention in am, NPO, IVF, analgesics/antiemetics as needed. Pre-op labs reviewed and essentially unremarkable. 3. Dementia: resume home Namenda/Abilify. 4. DVT Prophylaxis: Anticoagulation post op 5. Social work for d/c planning as needed 6. Case discussed w/ ER physician at length, labs/records/imaging reviewed by me.
[2018-08-05] MEDS ORDERED: Sodium Chloride 0.9% 2 ML Flush PRN IV.FLUSH (04:42)
[2018-08-05] MEDS ORDERED: Chlorhexidine Gluconate 2% 1 Pack (2 Cloths) TOPICAL ONE (05:24)
[2018-08-05] MEDS ORDERED: Sodium Chlor 0.9% Inj 500 ML IV.SIG SCH (06:00)
[2018-08-05] MEDS ORDERED: Senna/Docusate Sodium 8.6/50 MG Tablet PO SCH (09:00)
[2018-08-05] MEDS ORDERED: Sodium Chloride 0.9% 2 ML Flush BID IV.FLUSH SCH (09:00)
[2018-08-05] MEDS: Calcium Carbonate 500 MG Tablet PO SCH (09:52)
[2018-08-05] MEDS: ARIPiprazole 5 MG Tablet PO SCH (09:52)
[2018-08-05] MEDS ORDERED: Phenylephrine/NS 1000 MCG/10ML Syringe IV.PUSH ONE (11:51)
[2018-08-05] MEDS ORDERED: Neostigmine Inj 5 MG/5 ML Syringe IV.PUSH ONE (11:51)
[2018-08-05] MEDS ORDERED: Lidocaine PF 1% Inj 5 ML Syringe OTHER ONE (11:51)
[2018-08-05] MEDS ORDERED: Succinylcholine Inj 100 MG/5 ML Syringe IV.PUSH ONE (11:51)
[2018-08-05] MEDS ORDERED: Glycopyrrolate Inj 1 MG/5 ML Syringe IV.PUSH ONE (11:51)
[2018-08-05] MEDS ORDERED: Ketamine Inj 50 MG/5 ML Syringe IV.PUSH ONE (12:00)
--- NOTE | 2018-08-05 13:09 | ECG ---
Date Performed: 08/05/2018 Time Performed: 02:33:11 PTAGE: 77 years EKG: Sinus rhythm WITH OCCASIONAL SUPRAVENTRICULAR PREMATURE COMPLEXES MARKED LEFT AXIS DEVIATION LOW QRS VOLTAGE IN E XTREMITY LEADS ABNORMAL ECG NO PREVIOUS TRACING DOCTOR: Adebayo Bourgeois Interpretating Date/Time 08/05/2018 13:07:06
[2018-08-05] MEDS ORDERED: Post-op Orders (for Pharmacy) OTHER STA (13:25)
[2018-08-05] MEDS ORDERED: Zolpidem Tartrate 5 MG Tablet PO PRN (13:25)
[2018-08-05] MEDS ORDERED: Morphine Inj 4 MG/ML Vial IV.PUSH PRN (13:25)
[2018-08-05] MEDS ORDERED: Promethazine 25 MG Supp RECTAL PRN (13:25)
--- NOTE | 2018-08-05 13:45 | XR ---
EXAM DATE: 08/05/2018 12:00 AM EDT AGE/SEX: 77 years / Male INDICATIONS: ORIF Right trochnail. CLINICAL DATA: This is the patient's subsequent encounter. Patient reports that signs and symptoms h ave been present for 2 days and indicates a pain score of Nonresponsive. MEDICAL/SURGICAL HISTORY: Non-responsive. Non-responsive. COMPARISON: No prior exams available for comparison. FINDINGS: Status post internal fixation of the proximal femur. There is good position and alignment of the bony structures. The hardware is grossly intact. There is good alignment at the hip joint. CONCLUSION: Good position and alignment on this postoperative study. Electronically signed by: Jaciel Ordoñez MD 08/05/2018 1:43 PM EDT
[2018-08-05] MEDS ORDERED: fentaNYL Citrate Inj 100 MCG/2 ML Ampul ONE (13:47)
--- NOTE | 2018-08-05 14:03 | MB ---
cc: Nahum Vale MD DATE: 08/05/2018 REASON FOR CONSULTATION: Right intertrochanteric hip fracture. HISTORY OF PRESENT ILLNESS: A 77-year-old male with a past history of hypertension, hyperlipidemia, dementia, who presents to [facility] Emergency Room from [place] [facility] facility after a fall. He sustained traumatic injury to the right hip. Details are somewhat unknown. X-rays confirmed evidence of a right displaced intertrochanteric hip fracture. The patient has dementia and further history is not obtainable at this point. He has worsening symptoms with any movement, which is obvious upon clinical examination. No other injuries noted. He has been admitted to the medical service with orthopedic surgical consult for further evaluation and management of the injury and condition. PAST MEDICAL HISTORY: Positive for Alzheimer's dementia, hyperlipidemia, hypertension. SOCIAL HISTORY: Nonsmoker, nondrinker. No drug use. MEDICATIONS: Include: 1. Tylenol. 2. Abilify. 3. Morphine. 4. Bindu-Colace. 5. Calcium. 6. Ibuprofen 7. Pravastatin. 8. Vitamin D3. 9. Namenda. ALLERGIES: NO KNOWN DRUG ALLERGIES. REVIEW OF SYSTEMS: Unobtainable other than HPI, per the patient's dementia. FAMILY HISTORY: Unobtainable. PHYSICAL EXAMINATION: VITAL SIGNS: Temperature 98, pulse 84, respirations 20, blood pressure 160/70. GENERAL: The patient is awake, alert, lying in bed, in no acute distress. HEENT: Normocephalic, atraumatic. Pupils round. Extraocular muscles intact. NECK: Supple. LUNGS: Clear. HEART: Regular rate and rhythm. ABDOMEN: Soft, nontender. NEUROLOGIC: The patient shows confusion as related to his dementia. LABORATORY DATA: White blood cell count is 8.3, hemoglobin is 12, hematocrit 35, platelet 173. X-rays of the right hip reveal displaced right intertrochanteric hip fracture. IMPRESSION: This patient is a 77-year-old male with right displaced intertrochanteric hip fracture. PLAN: I have attempted to discuss the findings with the patient, who shows some limited understanding. He has expressed interest in surgical repair of the hip. In addition, there have been 2 physician medical necessity consultations provided by myself and the medical physician, as the patient does not have power of freight broker agent or family. The surgical site has been marked and we will schedule surgery accordingly. MD MAK Miller/patricia , 01:29 PM , 01:36 PM
--- NOTE | 2018-08-05 14:13 | MP ---
cc: Nahum Vale MD DATE OF OPERATION: 08/05/2018 PREOPERATIVE DIAGNOSIS: Right intertrochanteric hip fracture. POSTOPERATIVE DIAGNOSIS: Right intertrochanteric hip fracture. PROCEDURE PERFORMED: Open reduction and internal fixation with intramedullary nailing of right intertrochanteric hip fracture. SURGEON: Nahum Vale MD BOILER MECHANIC: KEITH Acosta ANESTHESIA: General. ESTIMATED BLOOD LOSS: 100 mL. COMPLICATIONS: None. IMPLANTS USED: Synthes INDICATIONS: The patient is a 77-year-old male who had fallen at a [facility] facility and sustained a displaced right intertrochanteric hip fracture. He also has dementia. He was taken to [facility] Emergency Room. He was admitted to the medical service. Orthopedic surgery was consulted. The patient was examined and counseled on the risks, benefits and alternatives of the above-named proposed surgical procedure. Although the patient does have dementia, he did express interest in and wishes to proceed with surgery. In addition a 2-physician consent and medical necessity have been obtained. PROCEDURE IN DETAIL: The patient was taken to the operating room. General anesthesia was administered to the patient as well as 2 grams IV Ancef and 1 gram of IV vancomycin. The right foot was placed in a well-padded traction boot and the left leg placed in a padded well leg kelley. All bony prominences and pressure points were well padded. The right hip and right lower extremity were prepped and draped using isopropyl alcohol, Hibiclens solution and ChloraPrep solution. After a timeout was performed, a longitudinal incision was made over the lateral aspect of the right hip. The fascial layer was incised and a guidewire was used to gain entrance into the intramedullary canal of the femur. This was followed by a cannulated entry reamer. Subsequently, with an open reduction performed, a Synthes titanium trochanteric femoral nail was inserted into the intramedullary canal of the femur. The 125-degree locking jig was used to place a guide pin centered into the femoral head on the AP and lateral fluoroscopic projections. This was followed by placement of 90 mm spiral blade. The top locking screw was then secured to create a fixed angle sliding construct. Distally, the locking jig was used to place a single lateral to medial transverse static locking screw. Fluoroscopic imaging confirmed hardware placement and fracture reduction. The surgical wound was thoroughly irrigated with sterile saline solution. The fascial layer was closed with 0 Vicryl suture, subcutaneous layer with 2-0 Vicryl suture and the skin was closed with Dermabond. Sterile dressing was applied. The patient tolerated the procedure well with no intraoperative complications noted. Jose E Chen, physician perioperative assistant, certified, was present for the entire procedure to include patient positioning the procedure itself. The medical necessity of a physician perioperative assistant was indicated in this case due to the complexity of the procedure. He assisted with appropriate manipulation of the leg and also retraction. He assisted with both achieving and maintaining fracture reduction as well as implantation of the internal fixation device. MD MAK Miller/tej , 01:31 PM , 01:39 PM
[2018-08-05] MEDS: Senna/Docusate Sodium 8.6/50 MG Tablet PO SCH (21:04)
[2018-08-05] MEDS: ceFAZolin Inj 2,000 MG in Sodium Chlor 0.9% Inj 80 ML IV.SIG SCH (21:05)
[2018-08-06] MEDS: ceFAZolin Inj 2,000 MG in Sodium Chlor 0.9% Inj 80 ML IV.SIG SCH ×2 (04:17→13:16)
--- NOTE | 2018-08-06 09:58 | P.PNOP ---
Subjective Interval history: pain controlled. Physical Exam Vital signs: Vital Signs 08/05/18 13:40 08/05/18 13:50 08/05/18 14:00 Temperature 97.3 F L Pulse Rate 78 73 77 Respiratory Rate 15 16 16 Blood Pressure 117/61 124/61 129/66 Pulse Oximetry 94 L 96 95 08/05/18 14:15 08/05/18 16:00 08/05/18 20:00 Temperature 97.8 F 97.5 F L 97.8 F Pulse Rate 72 85 79 Respiratory Rate 16 16 17 Blood Pressure 135/68 113/65 140/65 Pulse Oximetry 95 95 97 08/06/18 00:00 08/06/18 04:00 08/06/18 08:00 Temperature 97.8 F 97.9 F 97.4 F L Pulse Rate 70 80 74 Respiratory Rate 17 16 18 Blood Pressure 117/57 L 124/59 L 116/56 L Pulse Oximetry 94 L 96 92 L Intake & Output 08/05/18 08/06/18 08/06/18 18:59 06:59 18:59 Intake Total 700 / 700 1200 / 1200 Output Total 100 / 100 350 / 350 Balance 600 / 600 850 / 850 Weight 72 kg Intake: IV 1200 / 1200 LR 1000 mL Inj 1,000 ML @ 100 1000 / 1000 mls/hr IV.CONT .Q10H GILMAR Rx#: [id number] Ancef Inj 2,000 MG In NS Inj 80 200 / 200 ML @ 200 mls/hr IV.SIG Q8H GILMAR Rx#:[id number] Oral 0 / 0 Anesthesia Amount 700 / 700 Output: Urine 350 / 350 Estimated Blood Loss 100 / 100 Other: # Voids 1 Date of Last Bowel Movement 08/05/18 08/05/18 # Bowel Movements 1 Narrative: in bed, eating, nad dressing c/d/i neg homans nvi Results - Labs CBC & Chem 7: 08/05/18 03:00 Laboratory Results - last 24 hr 08/05/18 05:37 Nasal Screen MRSA (PCR) Negative Staph aureus (PCR) Negative - Imaging Impressions Hip X-Ray 08/05/18 00:00 CONCLUSION: Good position and alignment on this postoperative study. Assessment and Plan - Ortho Post Op Day # 1 - Assessment and Plan s/p R Troch nail POD#1 NWB ok to maintain dressing unless saturated [id number] PT d/c planning ortho stable
[2018-08-06] MEDS: Senna/Docusate Sodium 8.6/50 MG Tablet PO SCH ×2 (10:04→21:39)
[2018-08-06] MEDS: Multivitamin/Minerals Therapeutic Tablet PO SCH (10:04)
[2018-08-06] MEDS: Folic Acid 1 MG Tablet PO SCH (10:05)
[2018-08-06] MEDS: Calcium Carbonate 500 MG Tablet PO SCH (10:05)
[2018-08-06] MEDS: ARIPiprazole 5 MG Tablet PO SCH (10:05)
--- NOTE | 2018-08-06 10:15 | P.PN ---
Subjective Interval history: Follow up s/p fall and fx, s/p R Troch nail POD#1: awake, oriented to self and city, c/o pain right hip, stable. No cp, no sob, no fever. Eating okay. Demented , pleasant. Physical Exam Vital signs: Vital Signs 08/05/18 13:40 08/05/18 13:50 08/05/18 14:00 Temperature 97.3 F L Pulse Rate 78 73 77 Respiratory Rate 15 16 16 Blood Pressure 117/61 124/61 129/66 Pulse Oximetry 94 L 96 95 08/05/18 14:15 08/05/18 16:00 08/05/18 20:00 Temperature 97.8 F 97.5 F L 97.8 F Pulse Rate 72 85 79 Respiratory Rate 16 16 17 Blood Pressure 135/68 113/65 140/65 Pulse Oximetry 95 95 97 08/06/18 00:00 08/06/18 04:00 08/06/18 08:00 Temperature 97.8 F 97.9 F 97.4 F L Pulse Rate 70 80 74 Respiratory Rate 17 16 18 Blood Pressure 117/57 L 124/59 L 116/56 L Pulse Oximetry 94 L 96 92 L Intake & Output 08/05/18 08/06/18 08/06/18 18:59 06:59 18:59 Intake Total 700 / 700 1200 / 1200 Output Total 100 / 100 350 / 350 Balance 600 / 600 850 / 850 Weight 72 kg Intake: IV 1200 / 1200 LR 1000 mL Inj 1,000 ML @ 100 1000 / 1000 mls/hr IV.CONT .Q10H GILMAR Rx#: [id number] Ancef Inj 2,000 MG In NS Inj 80 200 / 200 ML @ 200 mls/hr IV.SIG Q8H GILMAR Rx#:[id number] Oral 0 / 0 Anesthesia Amount 700 / 700 Output: Urine 350 / 350 Estimated Blood Loss 100 / 100 Other: # Voids 1 Date of Last Bowel Movement 08/05/18 08/05/18 # Bowel Movements 1 Narrative: GENERAL: Elderly white male in no acute distress. SKIN: Focused skin assessment warm and dry. HEENT: PERRLA, EOMI. No scleral icterus or conjunctival pallor. No lid lag or facial droop. CARDIOVASCULAR: Regular rate and rhythm. No obvious murmurs to auscultation. No chest tenderness to palpation. RESPIRATORY: No obvious rhonchi or wheezing. Clear to auscultation. Breath sounds equal bilaterally. GASTROINTESTINAL: Abdomen soft, non-tender, nondistended. BS normal. MUSCULOSKELETAL: Extremities without clubbing, cyanosis, or edema. Right hip with dressing clean dry and intact. Intact sensation to the right foot, right pedal pulse 2+. NEUROLOGICAL: Awake, alert, oriented to self. No focal neurologic deficits. Moving both upper and lower extremities spontaneously. PSYCHIATRIC: Pleasantly demented Results - Labs CBC & Chem 7: 08/06/18 10:31 08/06/18 10:31 Laboratory Results - last 24 hr 08/05/18 05:37 Nasal Screen MRSA (PCR) Negative Staph aureus (PCR) Negative - Imaging Impressions Hip X-Ray 08/05/18 00:00 CONCLUSION: Good position and alignment on this postoperative study. Assessment and Plan - Assessment (1) Fall Code(s): W19.XXXA - Unspecified fall, initial encounter Status: Acute (2) Hip fracture, right Code(s): S72.001A - Fracture of unspecified part of neck of right femur, initial encounter for closed fracture Status: Acute (3) Dementia Code(s): F03.90 - Unspecified dementia without behavioral disturbance Status: Acute - Plan 77-year-old elderly male with a history of dementia, status post mechanical fall at SNF. No other injuries. Found with right hip fracture. Fall: s/p mechanical fall at SNF, no head trauma or LOC reported, no other injuries noted. -PT eval Right hip Fx secondary to above, S/P R Troch nail POD #1 -Appreciate Ortho input Continue with postop care Pain management Physical therapy evaluation, nonweightbearing status -Bowel regimen Continue with anticoagulation per orthopedic-Lovenox 40 subcu daily -Labs reviewed, H&H stable Dementia -Continue Namenda/Abilify. Hyperlipidemia Continue Pravachol CM for discharge planning Code Status: Full code Discussed Condition With: RN, patient Discharge Planning: Discharge back to SNF tomorrow when cleared by orthopedics
[2018-08-06 11:06] LABS: Baso % (Auto) 0.1 % (0.0-2.0); Hematocrit 31.9 % (39.0-51.0); Hemoglobin 10.8 gm/dL (13.0-17.0); Lymph # (Auto) 0.8 th/mm3 (1.0-4.8); Lymph % (Auto) 10.3 % (9.0-44.0); Mean Corpuscular HGB Conc 33.8 % (32.0-36.0); Mean Corpuscular Hemoglobin 31.8 pg (27.0-34.0); Mean Corpuscular Volume 93.9 fL (80.0-100.0); Mean Platelet Volume 8.9 fL (7.0-11.0); Mono # (Auto) 0.8 th/mm3 (0.0-0.9); Mono % (Auto) 11.1 % (0.0-8.0); Neut # (Auto) 5.9 th/mm3 (1.8-7.7); Neut % (Auto) 78.5 % (16.0-70.0); Platelet Count 196 th/mm3 (150-450); Red Blood Count 3.39 mil/mm3 (4.50-5.90); White Blood Count 7.5 th/mm3 (4.0-11.0)
[2018-08-06 11:34] LABS: Albumin 2.7 g/dL (3.4-5.0); Anion Gap 7 meq/L (5-15); Aspartate Aminotransferase 74 U/L (15-37); Blood Urea Nitrogen 20 mg/dL (7-18); Calcium 8.4 mg/dL (8.5-10.1); Chloride 108 meq/L (98-107); Glomerular Filtration Rate 86 mL/min (>89); Glucose,Random 102 mg/dL (74-106); Potassium 4.8 meq/L (3.5-5.1); Sodium 144 meq/L (136-145)
[2018-08-06 11:40] LABS: Alanine Aminotransferase 27 U/L (12-78); Alkaline Phosphatase 61 U/L (45-117)
[2018-08-06] MEDS: Enoxaparin Inj 40 MG/0.4 ML Syringe SQ SCH (12:36)
[2018-08-07 06:02] LABS: Hematocrit 28.7 % (39.0-51.0); Hemoglobin 9.6 gm/dL (13.0-17.0)
[2018-08-07] MEDS: Folic Acid 1 MG Tablet PO SCH (09:08)
[2018-08-07] MEDS: Multivitamin/Minerals Therapeutic Tablet PO SCH (09:08)
[2018-08-07] MEDS: Calcium Carbonate 500 MG Tablet PO SCH (09:08)
[2018-08-07] MEDS: ARIPiprazole 5 MG Tablet PO SCH (09:08)
[2018-08-07] MEDS: Senna/Docusate Sodium 8.6/50 MG Tablet PO SCH ×2 (09:08→20:46)
--- NOTE | 2018-08-07 09:41 | P.PNIM ---
Subjective Interval history: Overall pain control. Doing okay after surgery. Tolerating his breakfast. No other concerns at this time. Willing to go to rehab Physical Exam Vital signs: Vital Signs 08/06/18 10:23 08/06/18 11:54 08/06/18 16:00 Temperature 97.8 F 97.5 F L Pulse Rate 68 69 68 Respiratory Rate 18 18 17 Blood Pressure 104/57 L 126/58 L 124/55 L Pulse Oximetry 95 92 L 08/06/18 20:13 08/06/18 23:36 08/07/18 03:51 Temperature 97.4 F L 97.9 F 98.0 F Pulse Rate 97 H 69 65 Respiratory Rate 17 18 18 Blood Pressure 136/63 113/56 L 117/57 L Pulse Oximetry 92 L 93 L 95 08/07/18 08:00 Temperature 99.5 F Pulse Rate 64 Respiratory Rate 18 Blood Pressure 115/55 L Pulse Oximetry 91 L Intake & Output 08/06/18 08/07/18 08/07/18 18:59 06:59 18:59 Intake Total 900 / 900 1000 / 1000 Balance 900 / 900 1000 / 1000 Weight 72 kg Intake: IV 100 / 100 1000 / 1000 LR 1000 mL Inj 1,000 ML @ 100 1000 / 1000 mls/hr IV.CONT .Q10H GILMAR Rx#: [id number] Ancef Inj 2,000 MG In NS Inj 80 100 / 100 ML @ 200 mls/hr IV.SIG Q8H GILMAR Rx#:[id number] Oral 800 / 800 Other: Date of Last Bowel Movement 08/05/18 08/05/18 Narrative: GENERAL: This is a well-nourished, well-developed patient, in no apparent distress. CARDIOVASCULAR: Regular rate and rhythm RESPIRATORY: Clear to auscultation. Breath sounds equal bilaterally. No wheezes , rales, or rhonchi. GASTROINTESTINAL: Abdomen soft, non-tender, nondistended. Normal active bowel sounds MUSCULOSKELETAL: Right hip bandage clean dry intact NEURO: Alert & Oriented x4 to person, place, time, situation. Moves all ext x4 Results - Labs CBC & Chem 7: 08/07/18 04:53 08/06/18 10:31 Laboratory Results - last 24 hr 08/06/18 08/06/18 08/07/18 10:31 10:31 04:53 WBC 7.5 RBC 3.39 L Hgb 10.8 L 9.6 L Hct 31.9 L 28.7 L MCV 93.9 MCH 31.8 MCHC 33.8 RDW 14.0 Plt Count 196 MPV 8.9 Neut % (Auto) 78.5 H Lymph % (Auto) 10.3 Si[place] % (Auto) 11.1 H Eos % (Auto) 0.0 Baso % (Auto) 0.1 Neut # (Auto) 5.9 Lymph # (Auto) 0.8 L [place] # (Auto) 0.8 Eos # (Auto) 0.0 Baso # (Auto) 0.0 WBC Differential . Differential Comment Auto diff final Sodium 144 Potassium 4.8 Chloride 108 H Carbon Dioxide 29.0 Anion Gap 7 BUN 20 H Creatinine 0.86 Estimated GFR 86 L Random Glucose 102 Calcium 8.4 L Total Bilirubin 0.5 AST 74 H ALT 27 Alkaline Phosphatase 61 Total Protein 6.0 L Albumin 2.7 L Assessment and Plan - Assessment (1) Fall Code(s): W19.XXXA - Unspecified fall, initial encounter Status: Acute (2) Hip fracture, right Code(s): S72.001A - Fracture of unspecified part of neck of right femur, initial encounter for closed fracture Status: Acute (3) Dementia Code(s): F03.90 - Unspecified dementia without behavioral disturbance Status: Acute - Plan 77-year-old elderly male with a history of dementia, status post mechanical fall at SNF. No other injuries. Found with right hip fracture. Fall: s/p mechanical fall at SNF, no head trauma or LOC reported, no other injuries noted. Right hip Fx secondary to above, S/P R Troch nail POD #2 -Appreciate Ortho input Continue with postop care Pain management Physical therapy evaluation, nonweightbearing status -Bowel regimen Dementia -Continue Namenda/Abilify. Hyperlipidemia Continue Pravachol DVT prophylaxisLovenox Discharge Planning: [facility] once cleared by orthopedic surgery
--- NOTE | 2018-08-07 09:43 | P.DS ---
Date of admission: 08/05/18 04:19 Primary care physician: Usman Ceron MD Brief History from admission: This is a 77-year-old male with a PMH of HTN, Hyperlipidemia and Dementia who was sent to the ER from SNF for right hip fracture. Pt had apparent fall at SNF , details unknown, outpatient X-ray 08/04/18 showing right hip fracture and sent to ER for further evaluation. Pt reports right hip pain, moderate, worse w/ movement. No other injuries reported. On arrival, BP 162/72, HR 84, O2 sat 95 % on RA, Afebrile. CBC essentially unremarkable. INR 1.1. Chemistry unremarkable except for BUN 28. Urine Drug Screen negative. CXR with slight blunting left costophrenic angle elevation of left diaphragm. Hip/Pelvis X-ray intertrochanteric fracture right hip. Ortho consulted by ER physician, plan for surgical intervention in am. Patient update on day of discharge: Pain control. No other concerns at this time open to going to rehab. Tolerating breakfast. DS: Diagnosis - Discharge Diagnosis (1) Fall Status: Acute Diagnosis: Principal (2) Hip fracture, right Status: Acute Diagnosis: Principal (3) Dementia Status: Chronic Diagnosis: Secondary DS: Medications - Discharge Medications Prescriptions: hydrocodone-acetaminophen 1 tab PO Q6H PRN #28 tab PRN Reason: Acute Pain DS: Summary Hospital Course: 77-year-old elderly male with a history of dementia, status post mechanical fall at SNF. No other injuries. Found with right hip fracture and underwent a right trochanteric nailing with Dr. Vale, orthopedic surgery. Patient had an uncomplicated postoperative course with pain management and physical therapy and bowel regimen along with initiating Lovenox for DVT prophylaxis. He continue with his home medication for chronic dementia along with continue statin for his hyperlipidemia. At this time, patient has gained maximum benefit from hospitalization is ready to be discharged to half-way facility. - Time Spent with Patient Total time spent providing and/or coordinating discharge services: Less than 30 minutes - Quality: VTE Deep Vein Thrombosis/Pulmonary Embolism Present on Admission: No Exam Vital signs: Vital Signs 08/06/18 10:23 08/06/18 11:54 08/06/18 16:00 Temperature 97.8 F 97.5 F L Pulse Rate 68 69 68 Respiratory Rate 18 18 17 Blood Pressure 104/57 L 126/58 L 124/55 L Pulse Oximetry 95 92 L 08/06/18 20:13 08/06/18 23:36 08/07/18 03:51 Temperature 97.4 F L 97.9 F 98.0 F Pulse Rate 97 H 69 65 Respiratory Rate 17 18 18 Blood Pressure 136/63 113/56 L 117/57 L Pulse Oximetry 92 L 93 L 95 08/07/18 08:00 Temperature 99.5 F Pulse Rate 64 Respiratory Rate 18 Blood Pressure 115/55 L Pulse Oximetry 91 L Intake & Output 08/06/18 08/07/18 08/07/18 18:59 06:59 18:59 Intake Total 900 / 900 1000 / 1000 Balance 900 / 900 1000 / 1000 Weight 72 kg Intake: IV 100 / 100 1000 / 1000 LR 1000 mL Inj 1,000 ML @ 100 1000 / 1000 mls/hr IV.CONT .Q10H GILMAR Rx#: [id number] Ancef Inj 2,000 MG In NS Inj 80 100 / 100 ML @ 200 mls/hr IV.SIG Q8H GILMAR Rx#:[id number] Oral 800 / 800 Other: Date of Last Bowel Movement 08/05/18 08/05/18 Narrative: GENERAL: This is a well-nourished, well-developed patient, in no apparent distress. CARDIOVASCULAR: Regular rate and rhythm RESPIRATORY: Clear to auscultation. Breath sounds equal bilaterally. No wheezes , rales, or rhonchi. GASTROINTESTINAL: Abdomen soft, non-tender, nondistended. Normal active bowel sounds MUSCULOSKELETAL: Right hip bandage clean dry intact NEURO: Alert & Oriented x4 to person, place, time, situation. Moves all ext x4 Results Procedures completed during hospitalization: NONE Labs on day of discharge: Labs from last 24 hours 08/07/18 08/06/18 08/06/18 04:53 10:31 10:31 WBC 7.5 RBC 3.39 L Hgb 9.6 L 10.8 L Hct 28.7 L 31.9 L MCV 93.9 MCH 31.8 MCHC 33.8 RDW 14.0 Plt Count 196 MPV 8.9 Neut % (Auto) 78.5 H Lymph % (Auto) 10.3 Todd % (Auto) 11.1 H Eos % (Auto) 0.0 Baso % (Auto) 0.1 Neut # (Auto) 5.9 Lymph # (Auto) 0.8 L Todd # (Auto) 0.8 Eos # (Auto) 0.0 Baso # (Auto) 0.0 WBC Differential . Differential Comment Auto diff final Sodium 144 Potassium 4.8 Chloride 108 H Carbon Dioxide 29.0 Anion Gap 7 BUN 20 H Creatinine 0.86 Estimated GFR 86 L Random Glucose 102 Calcium 8.4 L Total Bilirubin 0.5 AST 74 H ALT 27 Alkaline Phosphatase 61 Total Protein 6.0 L Albumin 2.7 L - Impressions ITS Impressions Chest X-Ray 08/05/18 02:41 CONCLUSION: Age-indeterminate elevation of the left diaphragm and slight bunting of the left costophrenic angle. Hip X-Ray 08/05/18 02:41 CONCLUSION: Intertrochanteric fracture right hip Pelvis X-Ray 08/05/18 02:41 CONCLUSION: Intertrochanteric fracture of the right hip Discharge Plan - Discharge Disposition Patient Disposition: 03 Discharge to SNF - Discharge Condition Condition: Fair - Discharge Order Discharge Orders: Discharge Order (Routine); Ordered 08/07/18 Ordered By: Carrol Yoder Orthopedic Clear for Discharge (Routine); Ordered 08/07/18 Ordered By: Nahum Vale - Physicians Team Primary Care Provider: Usman Ceron Attending Provider: Carrol Yoder Other Providers: Nahum Vale MD ; [facility]
--- NOTE | 2018-08-07 12:25 | P.PNOP ---
Subjective Interval history: no complaints of pain. Physical Exam Vital signs: Vital Signs 08/06/18 16:00 08/06/18 20:13 08/06/18 23:36 Temperature 97.5 F L 97.4 F L 97.9 F Pulse Rate 68 97 H 69 Respiratory Rate 17 17 18 Blood Pressure 124/55 L 136/63 113/56 L Pulse Oximetry 92 L 92 L 93 L 08/07/18 03:51 08/07/18 08:00 Temperature 98.0 F 99.5 F Pulse Rate 65 64 Respiratory Rate 18 18 Blood Pressure 117/57 L 115/55 L Pulse Oximetry 95 91 L Intake & Output 08/06/18 08/07/18 08/07/18 18:59 06:59 18:59 Intake Total 900 / 900 1000 / 1000 Balance 900 / 900 1000 / 1000 Weight 72 kg Intake: IV 100 / 100 1000 / 1000 LR 1000 mL Inj 1,000 ML @ 100 1000 / 1000 mls/hr IV.CONT .Q10H GILMAR Rx#: [id number] Ancef Inj 2,000 MG In NS Inj 80 100 / 100 ML @ 200 mls/hr IV.SIG Q8H GILMAR Rx#:[id number] Oral 800 / 800 Other: Date of Last Bowel Movement 08/05/18 08/05/18 Narrative: in chair, nad dressing c/d/i neg maged holbrooki Results - Labs CBC & Chem 7: 08/07/18 04:53 08/06/18 10:31 Laboratory Results - last 24 hr 08/07/18 04:53 Hgb 9.6 L Hct 28.7 L Assessment and Plan - Ortho Post Op Day # 2 - Assessment and Plan s/p R Troch nail POD#2 NWB daily dressing changes [id number] PT d/c planning to snf - cleared by ortho ortho stable
[2018-08-07] MEDS: Enoxaparin Inj 40 MG/0.4 ML Syringe SQ SCH (18:21)
[2018-08-08 00:37] VITALS: O2SAT 94
[2018-08-08] MEDS: ARIPiprazole 5 MG Tablet PO SCH (08:24)
[2018-08-08] MEDS: Senna/Docusate Sodium 8.6/50 MG Tablet PO SCH (08:24)
[2018-08-08] MEDS: Multivitamin/Minerals Therapeutic Tablet PO SCH (08:24)
[2018-08-08] MEDS: Folic Acid 1 MG Tablet PO SCH (08:25)
[2018-08-08] MEDS: Calcium Carbonate 500 MG Tablet PO SCH (08:25)
[2018-08-08 09:44] VITALS: BP 134/64; PULSE 92; RESP 18; TEMP 98.9
--- NOTE | 2018-08-08 09:46 | P.PNIM ---
Subjective Interval history: No problems overnight. Tolerating breakfast. No complaint of pain at this time. Physical Exam Vital signs: Vital Signs 08/07/18 12:00 08/07/18 16:00 08/07/18 20:00 Temperature 98.4 F 98 F 97.6 F Pulse Rate 77 82 72 Respiratory Rate 18 18 16 Blood Pressure 133/64 137/73 144/67 H Pulse Oximetry 98 92 L 100 08/08/18 00:00 08/08/18 04:00 Temperature 98.6 F 98.6 F Pulse Rate 87 88 Respiratory Rate 16 16 Blood Pressure 115/69 106/65 Pulse Oximetry 94 L 94 L Intake & Output 08/07/18 08/08/18 08/08/18 18:59 06:59 18:59 Intake Total 600 / 600 Output Total 350 / 350 Balance 250 / 250 Weight 73.8 kg Intake: Oral 600 / 600 Output: Urine 350 / 350 Other: Date of Last Bowel Movement 08/05/18 Weight On Admission 72 kg Narrative: GENERAL: This is a well-nourished, well-developed patient, in no apparent distress. CARDIOVASCULAR: Regular rate and rhythm RESPIRATORY: Clear to auscultation. Breath sounds equal bilaterally. No wheezes , rales, or rhonchi. GASTROINTESTINAL: Abdomen soft, non-tender, nondistended. Normal active bowel sounds MUSCULOSKELETAL: Right hip bandage clean dry and intact NEURO: Awake and alert, follows simple commands and moves all 4 extremities Results - Labs CBC & Chem 7: 08/07/18 04:53 08/06/18 10:31 - Procedures 08/05 ORIF of the right hip with IM nailing Assessment and Plan - Assessment (1) Fall Code(s): W19.XXXA - Unspecified fall, initial encounter Status: Acute (2) Hip fracture, right Code(s): S72.001A - Fracture of unspecified part of neck of right femur, initial encounter for closed fracture Status: Acute (3) Dementia Code(s): F03.90 - Unspecified dementia without behavioral disturbance Status: Chronic - Plan 77-year-old elderly male with a history of dementia, status post mechanical fall at SNF. No other injuries. Found with right hip fracture. Fall: s/p mechanical fall at SNF, no head trauma or LOC reported, no other injuries noted. Right hip Fx secondary to above, S/P R Troch nail POD #3 -Appreciate Ortho input Continue with postop care Pain management Physical therapy evaluation, nonweightbearing status -Bowel regimen Dementia -Continue Namenda/Abilify. Hyperlipidemia Continue Pravachol DVT prophylaxistransition to aspirin from lovenox Discharge Planning: Discharge to assisted facility once cleared by orthopedic surgery
== END 2018-08-08 11:28 ==
LOC: NEPC 02:21 → NEDA 04:19 → N06 04:57
PROVIDERS: ADMIT Family Medicine; ATTEND Family Medicine